=== PATIENT | male | born 1970 | race Caucasian/White ===

== ENCOUNTER 2022-05-08 09:56 | Outpatient (REF) | payer OTHER, SELFPAY ==
[2022-05-08 11:31] LABS: MANUAL DIFF FLAG NO
[2022-05-08 11:44] LABS: Basophils Absolute Auto 0.1 X10*3/uL (0.0-0.2); Basophils Percent Auto 0.6 % (0-2); Eosinophils Absolute Auto 0.1 X10*3/uL (0.0-0.4); Hematocrit 43.4 % (42.0-52.0); Hemoglobin 14.8 g/dl (14.0-18.0); Imm Gran Abs Auto 0.04 X10*3/uL (0.00-0.03); Imm Gran Pct Auto 0.5 % (0.0-0.4); Lymphocytes Absolute Auto 2.5 X10*3/uL (1.2-4.9); Lymphocytes Percent Auto 30.5 % (20-40); Mean Corpuscular HGB Conc 34.1 g/dl (31.0-36.0); Mean Corpuscular Hemoglobin 30.6 pg (27.0-33.0); Mean Corpuscular Volume 89.7 fL (80.0-98.0); Monocytes Absolute Auto 0.6 X10*3/uL (0.1-1.2); Monocytes Percent Auto 7.8 % (2-11); Neutrophils Absolute Auto 4.8 x10*3/uL (2.0-8.3); Neutrophils Percent Auto 59.6 % (45-73); Platelet Count 330 X10*3/uL (160-400); Red Blood Count 4.84 X10*6/uL (4.60-5.80); Red Cell Distribution Width 11.7 % (11.0-16.0); White Blood Count 8.1 X10*3/uL (4.8-10.8)
[2022-05-08 12:37] LABS: Prostate Specific Antigen 1.31 ng/mL (<0.05-4.0); Thyroid Stimulating Hormone 0.92 uIU/mL (0.32-4.0); Vitamin D 25-OH Total 35.9 ng/mL (>30)
[2022-05-08 12:56] LABS: Alanine Aminotransferase 19 U/L (0-40); Alkaline Phosphatase 86 U/L (39-117); Anion Gap 16 (12-20); Aspartate Amino Transferase 19 U/L (5-37); Bilirubin Total 0.5 mg/dL (0.0-1.0); Blood Urea Nitrogen 16 mg/dL (9-16); Calcium 8.9 mg/dL (8.4-10.2); Carbon Dioxide 25 mmol/L (22-29); Chloride 103 mmol/L (96-108); Cholesterol 198 mg/dL; Estimated Glomerular Filt Rate > 60; Glucose Random 111 mg/dL (60-115); HDL Cholesterol 36 mg/dL; LDL Cholesterol Calculated 137 mg/dl; Potassium 4.1 mmol/L (3.3-5.1); Sodium 140 mmol/L (135-145); Triglycerides 127 mg/dL
== END 2022-05-08 09:57 | disposition home or self-care (01) ==
LOC: HO.MANLDS 09:56
PROVIDERS: Internal Medicine; Visit Provider Dermatology Procedural Dermatology
DX: Z00.00 Encounter for general adult medical examination without abnormal findings (principal); Z12.5 Encounter for screening for malignant neoplasm of prostate
CPT/HCPCS: 36415; 80053; 80061; 82306; 84153; 84443; 85025

== ENCOUNTER 2023-06-08 09:57 | Outpatient (REF) | payer OTHER, SELFPAY ==
[2023-06-08 13:12] LABS: MANUAL DIFF FLAG NO
[2023-06-08 13:33] LABS: Basophils Percent Auto 0.5 % (0-2); Eosinophils Absolute Auto 0.1 X10*3/uL (0.0-0.4); Eosinophils Percent Auto 0.8 % (0-4); Hematocrit 46.8 % (42.0-52.0); Hemoglobin 15.8 g/dl (14.0-18.0); Imm Gran Abs Auto 0.03 X10*3/uL (0.00-0.03); Imm Gran Pct Auto 0.4 % (0.0-0.4); Lymphocytes Absolute Auto 2.2 X10*3/uL (1.2-4.9); Lymphocytes Percent Auto 29.7 % (20-40); Mean Corpuscular HGB Conc 33.8 g/dl (31.0-36.0); Mean Corpuscular Hemoglobin 30.7 pg (27.0-33.0); Mean Corpuscular Volume 90.9 fL (80.0-98.0); Mean Platelet Volume 10.3 fL (9.4-12.4); Monocytes Absolute Auto 0.5 X10*3/uL (0.1-1.2); Monocytes Percent Auto 7.3 % (2-11); Neutrophils Absolute Auto 4.5 x10*3/uL (2.0-8.3); Neutrophils Percent Auto 61.3 % (45-73); Platelet Count 266 X10*3/uL (160-400); Red Blood Count 5.15 X10*6/uL (4.60-5.80); Red Cell Distribution Width 11.9 % (11.0-16.0); White Blood Count 7.3 X10*3/uL (4.8-10.8)
[2023-06-08 14:12] LABS: Alanine Aminotransferase 20 U/L (0-40); Albumin Level 4.2 g/dL (3.5-5.0); Alkaline Phosphatase 83 U/L (39-117); Anion Gap 17 (12-20); Aspartate Amino Transferase 17 U/L (5-37); Bilirubin Total 0.9 mg/dL (0.0-1.0); Blood Urea Nitrogen 14 mg/dL (9-16); Calcium 9.8 mg/dL (8.4-10.2); Carbon Dioxide 24 mmol/L (22-29); Chloride 103 mmol/L (96-108); Cholesterol 251 mg/dL; Estimated Glomerular Filt Rate > 60; Glucose Random 111 mg/dL (60-115); HDL Cholesterol 42 mg/dL; LDL Cholesterol Calculated 181 mg/dl; Potassium 4.1 mmol/L (3.3-5.1); Prostate Specific Antigen 2.27 ng/mL (<0.05-4.0); Sodium 140 mmol/L (135-145); Total Protein 7.4 g/dL (6.5-8.0); Triglycerides 141 mg/dL
== END 2023-06-08 09:58 | disposition home or self-care (01) ==
LOC: HO.MANLDS 09:57
PROVIDERS: Visit Provider Internal Medicine
DX: Z00.00 Encounter for general adult medical examination without abnormal findings (principal); Z12.5 Encounter for screening for malignant neoplasm of prostate; Z20.2 Contact with and (suspected) exposure to infections with a predominantly sexual mode of transmission; E78.00 Pure hypercholesterolemia, unspecified
CPT/HCPCS: 36415; 80053; 80061; 84153; 85025

== ENCOUNTER 2025-01-23 11:30 | Outpatient (REF) | payer OTHER, SELFPAY ==
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
--- OUTSIDE RECORDS SUMMARY | 2025-01-23 13:18 | XMS_ITS ---
Author Name [facility] Organization Unknown Problems Problem Status Onset Date Problem Type Date of Resoluti on Source Medial epicondylitis of left elbow joint (disorder) active 2024-07-01 ProblemAct [facility] Carpal tunnel syndrome of left wrist (disorder) active 2024-07-01 ProblemAct [facility] Encounters Encounter Type Encounter Reason Primary Diagnosis Location Date Ambulatory Medial epicondylitis , left elbow Medial epicondylitis, left elbow [facility] 07/17/2024 Ambulatory [facility] 4 Care Team Organization Name Specialty Phone Email Start Date End Da kandi [facility] 10/15/2024
[2025-01-23 13:45] LABS: MANUAL DIFF FLAG NO
[2025-01-23 14:04] LABS: Basophils Percent Auto 0.4 % (0-2); Eosinophils Absolute Auto 0.1 X10*3/uL (0.0-0.4); Eosinophils Percent Auto 1.1 % (0-4); Hematocrit 45.4 % (42.0-52.0); Hemoglobin 16.2 g/dl (14.0-18.0); Imm Gran Abs Auto 0.02 X10*3/uL (0.00-0.03); Imm Gran Pct Auto 0.3 % (0.0-0.4); Lymphocytes Absolute Auto 2.2 X10*3/uL (1.2-4.9); Lymphocytes Percent Auto 30.9 % (20-40); Mean Corpuscular HGB Conc 35.7 g/dl (31.0-36.0); Mean Platelet Volume 10.3 fL (9.4-12.4); Monocytes Absolute Auto 0.5 X10*3/uL (0.1-1.2); Monocytes Percent Auto 6.6 % (2-11); Neutrophils Absolute Auto 4.3 x10*3/uL (2.0-8.3); Neutrophils Percent Auto 60.7 % (45-73); Platelet Count 253 X10*3/uL (160-400); Red Blood Count 5.22 X10*6/uL (4.60-5.80); Red Cell Distribution Width 11.8 % (11.0-16.0); White Blood Count 7.1 X10*3/uL (4.8-10.8)
[2025-01-23 14:14] LABS: Alanine Aminotransferase 38 U/L (0-40); Alkaline Phosphatase 89 U/L (39-117); Anion Gap 12 (12-20); Aspartate Amino Transferase 29 U/L (5-37); Bilirubin Total 0.7 mg/dL (0.0-1.0); Blood Urea Nitrogen 19 mg/dL (9-16); Calcium 8.9 mg/dL (8.4-10.2); Carbon Dioxide 26 mmol/L (22-29); Chloride 105 mmol/L (96-108); Cholesterol 213 mg/dL (<200); Estimated Glomerular Filt Rate > 60; Glucose Random 156 mg/dL (60-115); HDL Cholesterol 40 mg/dL (>40); LDL Cholesterol Calculated 135 mg/dL (<100); Sodium 139 mmol/L (135-145); Total Protein 7.5 g/dL (6.5-8.0); Triglycerides 194 mg/dL (<150)
[2025-01-23 14:25] LABS: Prostate Specific Antigen 1.51 ng/mL (<0.05-4.0)
== END 2025-01-23 11:31 | disposition home or self-care (01) ==
LOC: HO.MANLDS 11:30
PROVIDERS: Visit Provider Internal Medicine
DX: Z00.00 Encounter for general adult medical examination without abnormal findings (principal); Z12.5 Encounter for screening for malignant neoplasm of prostate
CPT/HCPCS: 36415; 80053; 80061; 84153; 85025

== ENCOUNTER 2025-04-13 10:49 | Outpatient (REF) | payer OTHER, SELFPAY ==
--- NOTE | ~2025-04-13 | XR_ITS ---
EXAMINATION: XR SHOULDER 2 OR MORE VIEWS LEFT HISTORY: M25.512 - Pain in left shoulder COMPARISON: There are no prior studies available for comparison. FINDINGS: Two views of the left shoulder are submitted. Osseous mineralization is normal. There is no fracture or dislocation. The acromioclavicular joint spaces are preserved. The soft tissues are unremarkable. XR/XR shoulder LT min 2V IMPRESSION: Unremarkable examination of the left shoulder. Electronically signed by: Jem Morrison MD 04/13/2025 01:13 PM EDT
== END 2025-04-13 10:50 | disposition home or self-care (01) ==
LOC: HO.HOSX 10:49
PROVIDERS: Visit Provider Orthopaedic Surgery
DX: M25.312 Other instability, left shoulder (principal)
CPT/HCPCS: 73030

== ENCOUNTER 2025-04-13 11:16 | Outpatient (AMB) | payer OTHER, SELFPAY ==
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
[2025-04-13 11:30] VITALS: BMI 28.7
== END 2025-04-13 11:55 | disposition home or self-care (01) ==
LOC: HO.HOS 11:17
PROVIDERS: Visit Provider Orthopaedic Surgery
DX: M25.312 Other instability, left shoulder (principal)
CPT/HCPCS: 99203

== ENCOUNTER → 2025-04-13 11:24 | Outpatient (BNV) | payer OTHER, SELFPAY | PROVIDERS: Visit Provider Radiology Diagnostic Radiology | DX: M25.512 Pain in left shoulder (principal) | CPT/HCPCS: 73030 ==

== ENCOUNTER 2025-04-27 15:12 | Outpatient (REF) | payer OTHER, MEDICARE, SELFPAY ==
--- NOTE | ~2025-04-27 | MR_ITS ---
EXAMINATION: MR SHOULDER WITHOUT CONTRAST, LEFT TECHNIQUE: Multiplanar multisequence imaging through an upper extremity joint without contrast. INDICATION: Left shoulder instability PRIOR: X-rays April 13, 2025 FINDINGS: Rotator Cuff: There is a deep bursal sided tear of supraspinatus tendon at the footprint with 1 cm gap. Bursal surface of anterior infraspinatus tendon appears frayed near the footprint. Infraspinatus tendon is intact. Labrum: Posterior labrum is small and frayed. Long biceps tendon: The long biceps tendon is intact and not displaced from the groove. Acromioclavicular joint: Mild degenerative changes are evident in the AC joint. There is moderate marrow signal. There is mildly increased fluid in the subacromial subdeltoid bursa. Acromial morphology is flat, type I. There is a very small subacromial spur. Axillary pouch: The axillary pouch is intact. Axillary pouch appears mildly thickened and demonstrates mildly increased signal on all imaging sequences. Articular cartilage: There are no articular cartilage defects. Bones/Marrow: There are no marrow replacing lesions. Soft tissues: There is no muscle atrophy, edema, or fatty streaking. MR/MR shoulder LT wo con IMPRESSION: There is a deep bursal sided tear of supraspinatus tendon and bursal sided fraying of anterior infraspinatus tendon. There is a very small subacromial spur. Subacromial subdeltoid bursal effusion. Possible adhesive capsulitis: Axillary pouch is thickened with increased intrinsic signal which can be present in asymptomatic individuals but is also present in those with adhesive capsulitis. Posterior labrum is small and frayed. Electronically signed by: Fabrizio Dorado MD 04/27/2025 04:12 PM EDT
--- OUTSIDE RECORDS SUMMARY | 2025-04-27 17:09 | XMS_ITS | Data Portability ---
Author Organization [facility], Telehealth Patient Home Address [address] [place] [address] Assessment No assessment recorded. Plan of Treatment Reminders Order Date Submit Date Provider Last Modified By Organization Details Last Modified Time Details Appointments ANNUAL EXAM 2024 11:30A M DR BAEZA Not available Not available Not available Lab CMP, serum or plasma 2023 024 [facility], [address] [place] [address], [id number], 10/15/2024 14:04:03 CBC w/ auto diff 2023 024 [facility], [address] [place] [address], [id number], 10/15/2024 14:04:03 PSA, serum or plasma 2023 024 [facility], [address] [place] [address], [id number], 10/15/2024 14:04:03 lipid panel, blood 2023 024 [facility], [address] [place] [address], [id number], 10/15/2024 14:04:03 CMP, serum or plasma 2022 023 [facility], [address] [place] [address], [id number], 06/11/2023 11:11:39 lipid panel, blood 2022 023 [facility], [address] [place] [address], [id number], 06/11/2023 11:11:39 PSA, serum or plasma 2022 023 [facility], [address] [place] [address], [id number], 06/11/2023 11:11:39 CBC 2022 023 [facility], [address] [place] [address], [address], 06/11/2023 11:11:39 CMP, serum or plasma 2021 022 [facility], [address] [place] [address], [id number], 05/09/2022 12:13:22 lipid panel, blood 2021 022 [facility], [address] [place] [address], [address], 05/05/2022 15:05:20 CBC w/ auto diff 2021 022 [facility], [address] [place] [address], [id number], 05/05/2022 15:05:20 PSA, serum or plasma 2021 022 [facility], [address] [place] [address], [address], 05/05/2022 15:05:20 vitamin D, 25-hydrox y, total, serum 2021 022 [facility], [address] [place] [address], [address], 05/05/2022 15:05:20 TSH, serum or plasma 2021 022 [facility], [address] [facility], [place], [address], 05/05/2022 15:05:20 Referral orthopedi c surgeon referral 2021 022 [email or web address] 10 Teo Theodore MD, [address] [facility], [place], [address], 05/12/2022 10:34:[address] referral 2018 [facility] Kamran Marcum MD, [address] , [place], [address], 08/22/2019 09:11:25 gastroent erologist referral 2018 [facility], [address] [place], [address], 08/22/2019 09:23:57 Procedures trans-tho racic echocardi ogram (TTE) (PROC) 2018 019 [facility], [address] [place], [address], 08/26/2019 10:31:50 holter monitor placement (PROC) 2018 019 [facility], [address] [place], [address], 08/26/2019 10:31:50 Surgeries None recorded. Imaging MRI, shoulder, w/o contrast - pt has a plate and screws in the right arm from orthopedi cs 2024 025 [facility] (Imaging), [address] [place], [address], 04/03/2025 16:26:05 CT, heart, w/o contrast, w/ coronary calcium score 2022 023 [facility], [address] [place], [address], 06/15/2023 09:21:33 US, carotid artery 2018 019 [facility], [address] [place], [address], 09/01/2019 08:06:58 Medication Orders None recorded. Patient TargetsNo targets recorded. Patient Instructions Encounter Date Encounter Id Patient Instructions Last Modified By Organization Details Last Modified Time 08/18/2019 [id number] nausea and vomiting: care instructions Not available 08/18/2019 14:36:53 fainting: care instructions Not available 08/18/2019 14:36:53 lightheadedness or faintness: care instructions Not available 08/18/2019 14:36:53 05/05/2022 [id number] hearing loss: ca re instructions [email or web address] Not available 05/05/2022 15:04:01 hearing evaluation* [email or web address] Not aman ilable 05/12/2022 09:26:26 Reason for Referral Neurologist Referral for Syn cope Referring Physician: Lili Braswell, Internal Medicine, Encounter Date: 08/18/2019 Daycare Provider Referral for Screening for malignant neoplasm of colon Referring Physician: Lili Bras[facility], Encounter Date: 08/18/2019 Orthopedic Surgeon Referral for Lateral epicondylitis of left humerus Referring Physician: Justice Baeza, Internal Medicine, Encounter Date: 05/05/2022 Results Created Date Observation Date Name Description Value Unit Range Abnormal Flag Note LastModifiedBy Organization Detail LastModifiedTime 01/09/20 20 01/07/2020 elect roenc ephal ogram (EEG) ; inclu ding recor ding awake and drows y (PROC ) No observ ation record ed. [email or web address] Not Available 2021 14:51:08 06/28/20 23 06/28/2023 CT, heart , w/o contr ast, w/ coron elise calci um score No observ ation record ed. [email or web address] [facility] [address] [place], [address], 06/29/2023 09:20:40 Result Notes None recorded. Problems Name Problem SNOMED Code Status Onset Date Resolution Date Notes Provider Name and Address Organization Details Recorded Time Hearing loss 72019550 Active 2021 Justice Baeza DO [address] [place] [address], [address], [facility] 2 15:02:29 Hearing loss 90473459 Active 2021 Justice Baeza DO [address] [place] [address], [address], [facility] 2 15:02:33 Lateral epicondyl itis of left humerus 345815817342 100 Active 2021 Justice Baeza DO [address] [place] [address], [address], [facility] 2 15:04:28 Contact dermatiti s 71868055 Active 2022 Justice Baeza DO [address] [place] [address], [address], [facility] 3 15:35:40 Biceps tendiniti s 628796111 Active 2024 SHIVA LOREDO [address] [place] [address], [address], [facility] 5 12:27:19 Pain of left shoulder region Active 2024 SHIVA LOREDO [address] [place] [address], [address], [facility] 5 12:28:04 Problem Notes None recorded. Procedures Surgical History Date Name Laterality Status Provider Name and Address Organization Details Recorded Time 11/12/18 97 amputation of right upper extremity completed February SHWETA Braswell [address] [place] [address], [address], [facility] 08/18/2019 14:30:39 Imaging Results None recorded. Procedure Notes None recorded. Medical Equipment None [...] Not Available Vitals Date Recorded Body height Provider Name an d Address Organization Details Last Updated DateTime 03/25/2025 177.8 cm Ofelia Danyel [facility] 03/25/2025 12:01:20 Date Recorded Body height Body mass index (BMI) Body weight Oxygen saturation Oxygen saturation in Arterial blood by Pulse oximetry Heart rate Systolic blood pressure Diastolic blood pressure Provider Name and Address Organization Details Last Updated DateTime 2 179.07 cm 27.7 kg/m2 90646.7 5 g 98 % 98 % 78 /min 152 mm[Hg] 82 mm[Hg] Suzanne Mtz [facility] 2 14:47:06 Date Recorded Body height Body mass index (BMI) Body weight Heart rate Oxygen saturation Oxygen saturation in Arterial blood by Pulse oximetry Systolic blood pressure Diastolic blood pressure Provider Name and Address Organization Details Last Updated DateTime 3 177.8 cm 28.1 kg/m2 93086.7 5 g 67 /min 96 % 96 % 142 mm[Hg] 86 mm[Hg] Justice Baeza, DO [address] [place], [address], [facility] 3 09:31:34 Date Recorded Body height Body mass index (BMI) Body weight Heart rate Oxygen saturation Oxygen saturation in Arterial blood by Pulse oximetry Systolic blood pressure Diastolic blood pressure Provider Name and Address Organization Details Last Updated DateTime 9 179.07 cm 27 kg/m2 12095.7 1 g 79 /min 98 % 98 % 120 mm[Hg] 82 mm[Hg] Krystyna Diallo [facility] 9 14:17:39 Date Recorded Body height Body mass index (BMI) Body weight Heart rate Oxygen saturation Oxygen saturation in Arterial blood by Pulse oximetry Systolic blood pressure Diastolic blood pressure Provider Name and Address Organization Details Last Updated DateTime 4 177.8 cm 33.3 kg/m2 538228. 43 g 78 /min 96 % 96 % 136 mm[Hg] 80 mm[Hg] [facility] 4 13:44:48 Social History Question Answer Notes LastModified by [employer] Details LastModified Time Tobacco Smoking Status Former [facility]oker Not Available [facility] 03:36:23 What Was The Date Of Your Most Recent Tobacco Screening? 03/25/2025 [email or web address] Information not available 03/25/2025 How Much Tobacco Do You Smoke? 1 PPW [id number] Information not available 09/14/2020 How Many Years Have You Smoked Tobacco? 1 [id number] Information not available 09/14/2020 Sex: Unknown Functional Status Question Answer Note LastModified by [employer] Details LastModified Time Do you or have you ever used smokeless tobacco? Never used smokeless tobacco [id number] Information not available 09/14/2020 Do you or have you ever used e-cigarettes or vape? Never used electronic cigarettes [id number] Information not available 09/14/2020 Mental Status None recorded. Family History Relationship [...] SNOMED-CT Code Diagnosis ICD10 Code Diagnosis Note [id number] Justice Dedrick Baeza [facility] [address] [address] 10/11/2018 14:54:54 10/11/2018 16:56:55 Right flank pain 958415616 R10.9 to go to [facility] from [facility] for labs & X-ray [id number] Justice Dedrick Baeza [facility] [address] [address] 08/18/2019 14:12:27 08/18/2019 15:20:37 Syncope 725839323 R55 Nausea and vomiting 1693 1999 R11.2 resolved, none since er Screening for malignant neoplasm of colon 347100870 Z12.11 [id number] Justice Baeza [facility] [address] [address] 05/05/2022 14:36:46 05/05/2022 15:15:29 Active or passive immunization 028826426 Z23 utd Adult heal th examination 328176841 Z00.00 Hearing loss 14409598 H9 1.91 Lateral ep icondylitis of left humerus 9536782781 22908 M77.12 [id number] Justice Baeza [facility] [address] [address] 06/08/2023 09:23:52 06/08/2023 09:54:46 Active or passive immunization 285508643 Z23 utd Adult heal th examination 349589486 Z00.00 [id number] Justice Baeza [facility] [address] [address] 10/15/2024 13:39:50 10/15/2024 14:13:29 Active or passive immunization 709458711 Z23 utd Adult heal th examination 460635139 Z00.00 stable and doing ok Depression screening 171 502708 Z13.31 neg [id number] DO Brinda [facility] [address] [facility],[place] [address] 03/25/2025 11:48:21 03/25/2025 13:25:29 Biceps tendinitis 393423135 M67.922 will set up with MRI given physical exampt would like [place] Pain of le ft shoulder region 5963713490 M25.512 will fu after MRI, trying to move his ortho appt up based on imaging Depression screening 171 997842 Z13.31 negative Health Concerns Section Related Observation LastModified by Organization Detai ls LastModified Time None Recorded Concern Status LastModified by Organization Details LastModified Time None Recorded Advance Directives Directive None Recorded Payers Insurance Date Sequence Insurance Name Policy Number Policy Nogueira Covered Member ID Nogueira Member ID Guarantor Name 10/08/2024 1 [place]ICARE [place]: [employer] Kip Howard Laura [id number] Kip Sanchez 03/25/[address] [facility] [id number] Kip Laura [id number] Kip Navarroperla Notes Date Note Type Note Provider Name a nd Address Organization Details Recorded Time 9 text/html felt lightheaded and then passed [...] ness, rashes, or nail changes. SHWETA Johnson [address] [facility], [place], [address], [facility] 08/18/2019 14:43:09 2 text/html [...] hearing Vision:no vision problems Justice Baeza DO [address] [place] [address], [address], [facility] 05/05/2022 15:08:55 3 text/html Annual WellnessReported bypatient.Diet [...] has lost 10 lbs Justice Baeza DO [address] [place] [address], [address], [facility] 06/08/2023 09:51:56 5 text/html c/o L shoulder pain The patient reports left shoulder painThe pain started about a month ago or so, 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 is pretty activeThe pain is characterized byOn a scale of 1 to 10 the patient reports a 9 at worse and 5 at bestThe patient is right hand dominant, ambidextrous, cant's use his right hand due to injury at work, severed tendon, sig impairment of the R hand pulling, lifting, overhead motion, circumduction, int and ext rotationmostly with they biceps, supraspinatus, anterior arm seeing has an appt in Ortho in May which given the loss of ROM and ability to use his left shoulder is too far away, hitesh since he is relying on his left side given deformity of the right has hx of elbow surgery and injection which didn't take wellthe patient wore a sling for a bit after, which could have provoked a frozen shoulder the patient reports that he may have over extended the shoulder at some point Endorses weakness, radiation, reduced ROM, painThe pain is worsened by ext and int rotation, flexion, extmostly along the bicep and deltoid L arm The pain is alleviated by not moving his armNSAID, rest, PT has not been effective The patient denies specific trauma or injuryThe patient reports repetitive activities, lifting at work and golfing ROM compared to unaffected shoulder is reducedhe does have expected weakness on the right side due to the previous injury Pertinent comorbidities include hx of damage to that arm and dependency of his left shoulder SHIVA LOREDO [address] [place] [address], [place], [address], [facility] 03/25/2025 12:37:13
== END 2025-04-27 15:13 | disposition home or self-care (01) ==
LOC: HO.MRI 15:12
PROVIDERS: Visit Provider Orthopaedic Surgery
DX: M25.312 Other instability, left shoulder (principal)
CPT/HCPCS: 73221

== ENCOUNTER → 2025-04-27 15:28 | Outpatient (BNV) | payer OTHER, MEDICARE, SELFPAY | PROVIDERS: Visit Provider Radiology Diagnostic Radiology | DX: M75.102 Unspecified rotator cuff tear or rupture of left shoulder, not specified as traumatic (principal) | CPT/HCPCS: 73221 ==

== ENCOUNTER 2025-05-13 12:51 | Outpatient (AMB) | payer OTHER, MEDICARE, SELFPAY ==
--- NOTE | 2025-05-13 12:58 | A.OFFVIS_ITS ---
Vital Signs 05/13/25 12:59 Height 5 ft 10 in Weight 200 lb BMI 28.7 Intake Visit Reasons: OV-Lt shoulder MRI review Intake Note: Kip is a 54 year old left hand dominant male who presents with complaints of progressively worsening left shoulder pain and weakness. The patient states that he was right-hand dominant as a youngster. 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 The lower portion of his right arm was surgically reattached but his function has been diminished. Thus, the patient has learned to become left-hand dominant. The patient describes his left shoulder pain as sharp in nature. He reports weakness when lifting his hand above shoulder height. The patient states that several months ago he injured his left shoulder while playing golf. He had acute onset of pain. He has failed the last 6 weeks of conservative treatment which has included Tylenol, anti-inflammatory medicines, physical therapy and a home exercise program. The patient did undergo left elbow surgery by Dr. Theodore approximately 2 years ago. He reports intermittent discomfort in his left elbow as well. Allergies No Known Allergies Allergy (Verified 05/13/25 13:00) Medication List - Last Reconciled 05/14/25 by Paresh Corley MD No Known Home Meds Physical Exam Vital Signs: BMI result Body Mass Index 28.7 Const Other: Well-nourished well-developed very friendly male awake alert and oriented x3 in no acute distress Extrem Other: Left shoulder examination shows slightly decreased range of motion when compared to his right shoulder, 4/5 strength with supraspinatus testing, positive impingement signs, tenderness over his acromioclavicular joint, no instability Results Reviewed Results Reviewed: MRI of the patient's left shoulder show severe acromioclavicular joint narrowing , a type 3 acromion, a full-thickness supraspinatus tendon tear Assessment & Plan Assessment & Plan (1) Rotator cuff insufficiency of left shoulder: Code(s): M25.312 - Other instability, left shoulder Category: Medical Plan Mr. Sanchez presents with progressively worsening left shoulder pain and weakness due to impingement syndrome, acromioclavicular joint arthritis and a full- thickness rotator cuff tear. I had a lengthy discussion with the patient regarding the treatment options. At this point he has failed continued non operative treatments. The risks and benefits of left shoulder surgery were discussed at length with the patient. The patient wishes to proceed with surgery. Surgery will involve left shoulder arthroscopic distal clavicle excision, left shoulder arthroscopic acromioplasty and left shoulder mini open rotator cuff repair. The patient will be scheduled for next available date. He will follow-up as instructed. I spent 22 minutes in reviewing the patient's records and imaging studies, seeing the patient and documenting in the medical record. Coding Level of Care Code Est Pt Level 3 (47073) Complex EM visit Add On G2211 Diagnoses Rotator cuff insufficiency of left shoulder M25.312
[2025-05-13 12:59] VITALS: BMI 28.7
--- OUTSIDE RECORDS SUMMARY | 2025-05-13 13:20 | XMS_ITS | Continuity of Care Document ---
Author Name [facility] Organization [facility] Care Team Providers Care Bag Printer Name Role Phone [facility] Unavailable Unavailable Allergies, Adverse Reactions, Alerts Combined list of allergies from Department of Defense and Veterans Affairs facilities. It does not include entries that were removed or entered in error. Substance Category Reaction Severity Reaction type Status Date Reported Comments Source No Known Allergies Drug allergy (disorder) active 04/02/2017 Teo NAPIER, LEX Smith Social History Combined list of available smoking, tobacco, and other social history from Department of Defense and Veterans Affairs facilities. Social History Type Response Date Comment Sour e This section is an empty social history section. [facility]
--- OUTSIDE RECORDS SUMMARY | 2025-05-13 13:21 | XMS_ITS | Data Portability ---
Author Organization [facility] Telehealth Patient Home Address [address] [place] [address] Assessment No assessment recorded. Plan of Treatment Reminders Order Date Submit Date Provider Last Modified By Organization Details Last Modified Time Details Appointments ANNUAL EXAM 2024 11:30A M DR BAEZA Not available Not available Not available Lab CMP, serum or plasma 2023 024 [facility], [address] [place] [address], [id number], 10/15/2024 14:04:03 CBC w/ auto diff 2023 024 [facility], [address] [place] [address], [id number], 10/15/2024 14:04:03 PSA, serum or plasma 2023 024 [facility], [address] [place] [address], [id number], 10/15/2024 14:04:03 lipid panel, blood 2023 024 [facility], [address] [place] [address], [id number], 10/15/2024 14:04:03 CMP, serum or plasma 2022 023 [facility], [address] [place] [address], [id number], 06/11/2023 11:11:39 lipid panel, blood 2022 023 [facility], [address] [place] [address], [id number], 06/11/2023 11:11:39 PSA, serum or plasma 2022 023 [facility], [address] [place] [address], [id number], 06/11/2023 11:11:39 CBC 2022 023 [facility], [address] [place] [address], [address], 06/11/2023 11:11:39 CMP, serum or plasma 2021 022 [facility], [address] [place] [address], [id number], 05/09/2022 12:13:22 lipid panel, blood 2021 022 [facility], [address] [place] [address], [address], 05/05/2022 15:05:20 CBC w/ auto diff 2021 022 [facility], [address] [place] [address], [id number], 05/05/2022 15:05:20 PSA, serum or plasma 2021 022 [facility], [address] [place] [address], [address], 05/05/2022 15:05:20 vitamin D, 25-hydrox y, total, serum 2021 022 [facility], [address] [place] [address], [address], 05/05/2022 15:05:20 TSH, serum or plasma 2021 022 [facility], [address] [facility], [place], [address], 05/05/2022 15:05:20 Referral orthopedi c surgeon referral 2021 022 [email or web address] 10 Teo Theodore MD, [address] [facility], [place], [address], 05/12/2022 10:34:[address] referral 2018 [facility] Kamran Marcum MD, [address] [place], [address], 08/22/2019 09:11:25 gastroent erologist referral 2018 019 [facility], [address] [place], [address], 08/22/2019 09:23:57 Procedures trans-tho racic echocardi ogram (TTE) (PROC) 2018 019 [facility], [address] [place], [address], 08/26/2019 10:31:50 holter monitor placement (PROC) 2018 019 [facility], [address] [place], [address], 08/26/2019 10:31:50 Surgeries None recorded. Imaging MRI, shoulder, w/o contrast - pt has a plate and screws in the right arm from orthopedi cs 2024 025 [facility] (Imaging), [address] [place], [address], 04/03/2025 16:26:05 CT, heart, w/o contrast, w/ coronary calcium score 2022 023 [facility], [address] [place], [address], 06/15/2023 09:21:33 US, carotid artery 2018 019 [facility], [address] [place], [address], 09/01/2019 08:06:58 Medication Orders None recorded. Patient TargetsNo targets recorded. Patient Instructions Encounter Date Encounter Id Patient Instructions Last Modified By Organization Details Last Modified Time 08/18/2019 [id number] nausea and vomiting: care instructions Not available 08/18/2019 14:36:53 fainting: care instructions Not available 08/18/2019 14:36:53 lightheadedness or faintness: care instructions Not available 08/18/2019 14:36:53 05/05/2022 [id number] hearing loss: ca re instructions [email or web address] Not available 05/05/2022 15:04:01 hearing evaluation* [email or web address] Not aman ilable 05/12/2022 09:26:26 Reason for Referral Neurologist Referral for Syn cope Referring Physician: Lili Braswell, Internal Medicine, Encounter Date: 08/18/2019 [facility] Referral for Screening for malignant neoplasm of [...] um score No observ ation record ed. [email or web address] [facility] [address] [place], [address], 06/29/2023 09:20:40 Result Notes None recorded. Problems Name Problem SNOMED Code Status Onset Date Resolution Date Notes Provider Name and Address Organization Details Recorded Time Hearing loss 50387275 Active 2021 Justice Baeza DO [address] [place] [address], [phone], [facility] 2 15:02:29 Hearing loss 70675230 Active 2021 Justice Baeza DO [address] [place] [address], [address], [facility] 2 15:02:33 Lateral epicondyl itis of left humerus 975200550103 100 Active 2021 Justice Baeza DO [address] [place] [address], [address], [facility] 2 15:04:28 Contact dermatiti s 92655004 Active 2022 Justice Baeza DO [address] [place] [address], [address], [facility] 3 15:35:40 Biceps tendiniti s 738412324 Active 2024 SHIVA LOREDO [address] [place] [address], [address], [facility] [place] [facility] 5 12:27:19 Pain of left shoulder region Active 2024 SHIVA LOREDO [address] [place] [address], [address], [facility] 5 12:28:04 Problem Notes None recorded. Procedures Surgical History Date Name Laterality Status Provider Name and Address Organization Details Recorded Time 11/12/18 97 amputation of right upper extremity completed February SHWETA Braswell [address] [place] [address], [phone], [facility] 08/18/2019 14:30:39 Imaging Results None [...] Details Last Updated DateTime 03/25/2025 177.8 cm Ofeliadelbert Montaño [facility] 03/25/2025 12:01:20 Date Recorded Body height Body mass index (BMI) Body weight Oxygen saturation Oxygen saturation in Arterial blood by Pulse oximetry Heart rate Systolic blood pressure Diastolic blood pressure Provider Name and Address Organization Details Last Updated DateTime 2 179.07 cm 27.7 kg/m2 95764.7 5 g 98 % 98 % 78 /min 152 mm[Hg] 82 mm[Hg] Suzanne Mtz [facility] 2 14:47:06 Date Recorded Body height Body mass index (BMI) Body weight Heart rate Oxygen saturation Oxygen saturation in Arterial blood by Pulse oximetry Systolic blood pressure Diastolic blood pressure Provider Name and Address Organization Details Last Updated DateTime 3 177.8 cm 28.1 kg/m2 58279.7 5 g 67 /min 96 % 96 % 142 mm[Hg] 86 mm[Hg] Justice Baeza, DO [address] [place], [address], [facility] 3 09:31:34 Date Recorded Body height Body mass index (BMI) Body weight Heart rate Oxygen saturation Oxygen saturation in Arterial blood by Pulse oximetry Systolic blood pressure Diastolic blood pressure Provider Name and Address Organization Details Last Updated DateTime 9 179.07 cm 27 kg/m2 17819.7 1 g 79 /min 98 % 98 % 120 mm[Hg] 82 mm[Hg] Krystyna Diallo [facility] 9 14:17:39 Date Recorded Body height Body mass index (BMI) Body weight Heart rate Oxygen saturation Oxygen saturation in Arterial blood by Pulse oximetry Systolic blood pressure Diastolic blood pressure Provider Name and Address Organization Details Last Updated DateTime 4 177.8 cm 33.3 kg/m2 307350. 43 g 78 /min 96 % 96 % 136 mm[Hg] 80 mm[Hg] [facility] 4 13:44:48 Social History Question Answer Notes LastModified by Gl[employer] Details LastModified Time Tobacco Smoking Status Former Smoker Not Available [facility] 09/14/2020 03:36:23 What Was The Date Of Your Most Recent Tobacco Screening? 03/25/2025 [email or web address] Information not available 03/25/2025 How Much Tobacco Do You Smoke? 1 PPW [id number] Information not available 09/14/2020 How Many Years Have You Smoked Tobacco? 1 [id number] Information not available 09/14/2020 Sex: Unknown Functional Status Question Answer Note LastModified by Gl[employer] Details LastModified Time Do you or have you ever used smokeless tobacco? Never used smokeless tobacco [id number] Information not available 09/14/2020 Do you or have you ever used e-cigarettes or vape? Never used electronic cigarettes [id number] Information not available 09/14/2020 Mental Status None recorded. Family History Relationship Description Onset Age of this Age Resolved Age Notes LastModified by Organization Details LastModified Time Father Squamous cell carcinoma of anal margin [email or web address] Not available 05/2019 14:40:14 Medical History Condition Response Coronary Artery Disease N Other N Gout N Blood Diseases N Kidney Stones N Blood Transfusion N Breast Cancer N COPD N Depression N Lung Disease N Defects or Inherited Disease N Anxiety Disorder N Muscle, Joint, or Bone Problems N Obesity N Vision or Eye Problems N Arthritis N Polyps N Infertility N Mental Disorder N Cancer N Varicosities N Stroke N Endometriosis N Bladder or Kidney Problems N High Cholesterol N Liver Disease N Fibromyalgia N Headaches N Kidney Disease N Allergies/Hayfever N Heart Problems N Hospitalizations N Thyroid Problems N GI Problems N Skin Problems N Eating Disorder N Anemia N MRSA exposure N Constipation N Mental Illness N Ovarian Cancer N Diabetes N Seizures/Epilepsy N Tuberculosis N Congestive Heart Failure (CHF) N Eczema N Diverticulitis N Abuse/Domestic Violence N Asthma N Reflux/GERD N Hepatitis N Heart Disease N Pulmonary Embolism N Hypertension N Osteoporosis N Chicken Pox N Autism Spectrum Disorder (ASD) N Past Encounters Encounter ID Performer Location Encounter Start Date Encounter Closed Date Diagnosis/Indication Diagnosis SNOMED-CT Code Diagnosis ICD10 Code Diagnosis Note [id number] Justice Enamoradostephanie [facility] [address] [address] 10/11/2018 14:54:54 10/11/2018 16:56:55 Right flank pain 898982721 R10.9 to go to [facility] from [facility] for labs & X-ray [id number] Justice Enamoradostephanie [facility] [address] [address] 08/18/2019 14:12:27 08/18/2019 15:20:37 Syncope 577012445 R55 Nausea and vomiting 1693 2000 R11.2 resolved, none since er Screening for malignant neoplasm of colon 635336800 Z12.11 [id number] Justice Enamoradostephanie [facility] [address] [address] 05/05/2022 14:36:46 05/05/2022 15:15:29 Active or passive immunization 817166493 Z23 utd Adult heal th examination 779448476 Z00.00 Hearing loss 31097774 H9 1.91 Lateral ep icondylitis of left humerus 8139761226 20549 M77.12 [id number] Justice Enamoradostephanie [facility] [address] [address] 06/08/2023 09:23:52 06/08/2023 09:54:46 Active or passive immunization 126961404 Z23 utd Adult heal th examination 761249170 Z00.00 [id number] Justice Enamoradostephanie [facility] [address] [address] 10/15/2024 13:39:50 10/15/2024 14:13:29 Active or passive immunization 357252367 Z23 utd Adult heal th examination 700529338 Z00.00 stable and doing ok Depression screening 171 942391 Z13.31 neg [id number] DO Br[facility] [address] [facility],[place] [address] 03/25/2025 11:48:21 03/25/2025 13:25:29 Biceps tendinitis 851271016 M67.922 will set up with MRI given physical exampt would like [place] Pain of le ft shoulder region 5983859882 M25.512 will fu after MRI, trying to move his ortho appt up based on imaging Depression screening 171 961604 Z13.31 negative Health Concerns Section Related Observation LastModified by Organization Detai ls LastModified Time None Recorded Concern Status LastModified by Organization Details LastModified Time None Recorded Advance Directives Directive None Recorded Payers Insurance Date Sequence Insurance Name Policy Number Policy Nogueira Covered Member ID Nogueira Member ID Guarantor Name 10/08/2024 1 MEDICARE [place]: [employer] Kip Howard Laura [id number] Kip Sanchez 03/25/2025 1 [facility] [id number] Kip Laura [id number] Kip Navarroperla Notes Date Note Type Note [...] rashes, or nail changes. 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
--- OUTSIDE RECORDS SUMMARY | 2025-05-13 13:22 | XMS_ITS ---
Author Name [facility] Organization Unknown Problems Problem Status Onset Date [...] [facility] 07/17/2024 Ambulatory [facility] Care Team Organization Name Specialty Phone Email Start Date End Da te [facility] 10/15/2024
== END 2025-05-13 13:28 | disposition home or self-care (01) ==
LOC: HO.HOS 12:52
PROVIDERS: Visit Provider Orthopaedic Surgery
DX: M25.312 Other instability, left shoulder (principal)
CPT/HCPCS: 99214; G2211

== ENCOUNTER 2025-08-27 10:15 | Outpatient (AMB) | payer OTHER, MEDICARE, SELFPAY ==
[2025-08-27 10:19] VITALS: BMI 28.7
--- NOTE | 2025-08-27 10:19 | MHC.OFFVIS ---
Vital Signs 08/27/25 10:19 Height 5 ft 10 in Weight 200 lb BMI 28.7 Intake Visit Reasons: Preop LT shoulder 09/04/25 DR Wild Note: Kip is a 54 year old left hand dominant male who presents with complaints of progressively worsening left shoulder pain and weakness. The patient states that he was right-hand dominant as a youngster. 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 The lower portion of his right arm was surgically reattached but his function has been diminished. Thus, the patient has learned to become left-hand dominant. The patient describes his left shoulder pain as sharp in nature. He reports weakness when lifting his hand above shoulder height. The patient states that several months ago he injured his left shoulder while playing golf. He had acute onset of pain. He has failed the last 6 weeks of conservative treatment which has included Tylenol, anti-inflammatory medicines, physical therapy and a home exercise program. The patient did undergo left elbow surgery by Dr. Theodore approximately 2 years ago. He reports intermittent discomfort in his left elbow as well. Allergies No Known Allergies Allergy (Verified 08/27/25 10:23) Medication List - Last Reconciled 08/27/25 by Paresh Corley MD No Known Home Meds [facility] Medical History Arm injury Family history of colon cancer Surgical History Hx of elbow surgery History of surgery on upper extremity H/O colonoscopy Social History Are you a primary md do resident urgent care to a significant other at home: No Do you presently have visiting nurse or other home services: No Patient Tobacco Use Status: Former Tobacco user Tobacco use type: Cigarette Years Smoked: 2 Physical Exam Vital Signs: BMI result Body Mass Index 28.7 Const Other: Well-nourished well-developed very friendly male awake alert and oriented x3 in no acute distress Extrem Other: Left shoulder examination shows slightly decreased range of motion when compared to his right shoulder, 4/5 strength with supraspinatus testing, positive impingement signs, tenderness over his acromioclavicular joint, no instability Results Reviewed Results Reviewed: MRI of the patient's left shoulder show severe acromioclavicular joint narrowing, a type 2 acromion, a full-thickness tear of the supraspinatus tendon Assessment & Plan Assessment & Plan (1) Rotator cuff insufficiency of left shoulder: Code(s): M25.312 - Other instability, left shoulder Category: Medical Plan Mr. Sanchez presents with progressively worsening left shoulder pain and weakness due to impingement syndrome, acromioclavicular joint arthritis and a full-thickness rotator cuff tear. I had a lengthy discussion with the patient regarding the treatment options. At this point he has failed continued non operative treatments. The risks and benefits of right shoulder surgery were discussed at length with the patient. The patient wishes to proceed. Surgery will involve left shoulder arthroscopic distal clavicle excision, left shoulder arthroscopic acromioplasty and left shoulder mini open rotator cuff repair. The patient will be given a prescription for pain medicine at the time of his surgery. He will follow up as instructed. Feel free to call me at any time should questions regarding his orthopedic management arise. I spent 22 minutes in reviewing the patient's records and imaging studies, seeing the patient and documenting in the medical record. Coding Level of Care Code Est Pt Level 3 (88938) Complex EM visit Add On G2211 Diagnoses Rotator cuff insufficiency of left shoulder M25.312
--- OUTSIDE RECORDS SUMMARY | 2025-08-27 12:36 | XMS_ITS | Encounter Summary ---
Author Organization [facility] Address [address] [facility] [address] [place] [address] Phone Care Team Providers Care Cuff Slitter Name Role Phone Justice Hull DO Primary Care Provider [phone] Justice Hull DO Primary Care Provider [phone] Encounter Details Date Type Department Care Team (Latest Contact Info) Description 08/19/2019 Transcribe Orders Virtual Department [address] [place] [address] Lili Braswell PA-C [address] [place] [address] Syncope and collapse (Primary Dx) Social History [...] Primary documented in this encounter Care Teams Cuff Slitter Relationship Specialty Start Date End Date Justice Hull DO PCP - General 11/15/17 04/22/25 Justice Hull DO [address] [place] [address] [email or web address] PCP - General Internal Medicine 04/23/25 documented as of this encounter Additional Source Comments The information contained in this document represents components of the legal health record. It is not the complete legal health record.[facility]
--- OUTSIDE RECORDS SUMMARY | 2025-08-27 12:36 | XMS_ITS | Encounter Summary ---
Author Organization [facility] Address [address] [place] [address] Phone Care Team Providers Care Internet Application Developer Name Role Phone Kelseastephanie Justice Maurilio Primary Care Provider [phone] Justice Hull DO Primary Care Provider [phone] Encounter Details Date Type Department Care Team ([facility] st Contact Info) Description 11/17/2022 Procedure Pass [facility] Endoscopy Admitting Dept Virtual Department [address] [place] [address] Social History Tobacco Use Types Packs/Day Years [...] on filedocumented in this encounter Care Teams Internet Application Developer Relationship Specialty Start Date End Date Justice Hull DO PCP - General 11/15/17 04/22/25 Justice Hull DO [address] [place] [address] [email or web address] PCP - General Internal Medicine 04/23/25 documented as of this encounter Additional Source Comments The information contained in this document represents components of the legal health record. It is not the complete legal health record.[facility]
--- OUTSIDE RECORDS SUMMARY | 2025-08-27 12:37 | XMS_ITS | Encounter Summary ---
Author Organization [facility] Address [address] [place] [address] [place] [address] Phone Care Team Providers Care Jd Edwards Consultant Name Role Phone Justice Hull Primary Care Provider [phone] KelseaJustice brown Primary Care Provider [phone] Encounter Details Date Type Department Care Team (Latest Contact Info) Description 01/22/2020 Transcribe Orders Virtual Department [address] [place] [address] Almas Rosenberg MD [address] [place] [address], [address] [place] [address] [email or web address] Nonintractable headache, unspecified chronicity pattern, unspecified [...] convulsions documented in this encounter Care Teams Jd Edwards Consultant Relationship Specialty Start Date End Date BigJustice brown PCP - General 11/15/17 04/22/25 KelseaJustice brown [address] [place] [address] PCP - General Internal Medicine 04/23/25 documented as of this encounter Additional Source Comments The information contained in this document represents components of the legal health record. It is not the complete legal health record.[facility]
--- OUTSIDE RECORDS SUMMARY | 2025-08-27 12:37 | XMS_ITS | Clinical Summary ---
Author Organization [facility] Address [address] [employer] [facility] [address] [place] [address] Phone Care Team Providers Care Fan Engine Engineer Name Role Phone Martin Baeza Primary Care Provider Allergies No known active allergies Medications SUMAtriptan [...] 11/17/2032 11/17/2022, 11/07/2019 COLORECTAL CANCER SCREENING 11/17/2032 RSV VACCINE (1 - 1-dose 75+ series) 2047 HEPATITIS A VACCINES Aged Out No long [...] this topic Medical Devices Implanted Type Area Precision Lens Centerer And Edger Device Identifier Shelf Expiration Date Model / Serial / Lot R Elbow Pins And Plate Procedures Procedure Name Priority Date/Time Associated Diagnosis Comments ENDOSCOPY, COLON 11/17/2022 11:0 0 AM EST from Last 3 Months or Most Recently Relevant to Health Maintenance Results * ENDOSCOPY, COLON (11/17/2022 11:00 AM EST) Narrative Transcriptions Jesus Do MD - 11/17/2022 11:00 AM EST [facility] Patient Name: Kip Rollins Attending MD:: JESUS DO MD Procedure Date: 11/17/2022 11:00 AM Date of : 1970 Age: 51 Admit Type: Outpatient Gender: Male Room: [facility] 05 Referring MD: MARTIN BAEZA DO Exam [...] monitored continuously. The Olympus adult variable colonoscope [id number] #[id number] was introduced through the anus and [...] 11:00 AM Procedure Code(s): --- Professional --- 28220, Colonoscopy, flexible; diagnostic, including collection of specimen(s) by brushing or washing, when performed (separateprocedure) --- Technical --- 74348, Colonoscopy, flexible; diagnostic, including collection of specimen(s) by brushing or washing, when performed (separateprocedure) Diagnosis Code(s): --- Professional --- Z86.010, Personal history of colonic polyps Z80.0, Family history of malignant neoplasm of digestive organs --- Technical --- Z86.010, Personal history of colonic polyps Z80.0, Family history of malignant neoplasm of digestive organs CPT copyright 2020 [employer]. All rights reserved. The codes documented in this report are preliminary and upon scrub tech reviewmay be revised to meet current compliance requirements. Procedure Date: 11/17/2022 11:00:51 AM [address] [place] [address] Martin Baeza DO GI PROCEDURE ORDERABLES Final Re sult from Last 3 Months or Most Recently Relevant to Health Maintenance [facility] & B O MEDICARE PART A & B MEDICARE PART A & B MEDICARE PART A & [place] [address] [place], [place] [id number] MEDICARE PART A & B MEDICARE PART A & B O MEDICARE PART A & B [address] [place], [place] [id number] MEDICARE PART A & B O MEDICARE PART A & B [employer] Care Teams Fan Engine Engineer Relationship Specialty Start Date End Date Martin Baeza DO [address] [place] [address] [email or web address] PCP - General Internal Medicine 04/23/25 Additional Source Comments The information contained in this document represents components of the legal health record. It is not the complete legal health record.[facility]
--- OUTSIDE RECORDS SUMMARY | 2025-08-27 12:37 | XMS_ITS | Encounter Summary ---
Author Organization [facility] Address [address] [facility] [address] [place] [address] Phone Care Team Providers Care Core Mounter Name Role Phone Justice Hull Primary Care Provider [phone] Encounter Details Date Type Department Care Team ([facility] st Contact Info) Description 04/23/2025 Procedure Pass [facility], Ct Scan - [address] [address] Social History Tobacco Use Types Packs/Day Years [...] 10:10 AM EDT Jojo Zendejas, RN * [place] Suicide Severity Rating Scale (Screener/Recent Self-Report) Question [...] on filedocumented in this encounter Care Teams Core Mounter Relationship Specialty Start Date End Date Justice Hull DO [address] [place] [address] [email or web address] PCP - General Internal Medicine 04/23/25 documented as of this encounter Additional Source Comments The information contained in this document represents components of the legal health record. It is not the complete legal health record.[facility]
--- OUTSIDE RECORDS SUMMARY | 2025-08-27 12:37 | XMS_ITS | Encounter Summary ---
Author Organization [facility] Address [address] [facility] [address] [place] [address] Phone Care Team Providers Care Program Clinician Name Role Phone Justice Hull Primary Care Provider [phone] Kelseastephanie Justice Maurilio Primary Care Provider [phone] Reason for Referral * MRI/CAT Scan - Closed Specialty Diagnoses / Procedures Referred By Melanie archer Referred To Contact Radiology Diagnoses Elbow pain, chronic, left Procedures MRI Elbow (Left) CHG MRI, JOINT UPPER EXTREM Milad Cuellar MD [facility] [place] [address] Phone: tel: fax: Referral ID Status Reason Start Date Expiration Date Visits Re quested Visits Authorized [id number] Closed 09/01/2024 10/11/2024 1 1 Encounter Details Date Type Department Care Team (Latest Contact Info) Description 09/01/2024 Transcribe Orders Virtual Department [address] [place] [address] Milad Cuellar MD [facility] [place] [address] Elbow pain, chronic, left (Primary Dx) Social [...] left documented in this encounter Care Teams Program Clinician Relationship Specialty Start Date End Date Justice Hull DO PCP - General 11/15/17 04/22/25 Justice Hull DO [address] [place] [address] [email or web address] PCP - General Internal Medicine 04/23/25 documented as of this encounter Additional Source Comments The information contained in this document represents components of the legal health record. It is not the complete legal health record.[facility]
--- OUTSIDE RECORDS SUMMARY | 2025-08-27 12:37 | XMS_ITS | Encounter Summary ---
Author Organization [facility] Address [address] [facility] [address] [place] [address] Phone Care Team Providers Care Transport Aide Name Role Phone Justice Hull DO Primary Care Provider [phone] Justice Hull DO Primary Care Provider [phone] Encounter Details Date Type Department Care Team (Late st Contact Info) Description 10/11/2018 Ancillary Orders Virtual Department [address] [place] [address] Yenyn Wiggins CNP [address] [place] [address] [email or web address] Right flank pain Social History Tobacco Use [...] flank pain. POS - [id number] Yenny Wiggins SENIOR ATTORNEY IMG XR ABDOMEN Edited Resu lt - Final documented in this encounter Visit Diagnoses Diagnosis Right flank pain Abdominal pain, unspecified site Right flank pain Abdominal pain, unspecified site documented in this encounter Care Teams Transport Aide Relationship Specialty Start Date End Date Justice Hull DO [email or web address] PCP - General 11/15/17 04/22/25 Justice Hull DO [address] [place] [address] [email or web address] PCP - General Internal Medicine 04/23/25 documented as of this encounter Additional Source Comments The information contained in this document represents components of the legal health record. It is not the complete legal health record.[facility]
--- OUTSIDE RECORDS SUMMARY | 2025-08-27 12:37 | XMS_ITS | Encounter Summary ---
Author Organization [facility] Address [address] [facility] [address] [place] [address] Phone Care Team Providers Care Screen Roller Name Role Phone Justice Hull DO Primary Care Provider [phone] KelseaJustice brown DO Primary Care Provider [phone] Encounter Details Date Type Department Care Team (Late st Contact Info) Description 09/01/2024 Procedure Pass [address] [place] [address] Social History Tobacco Use Types Packs/Day Years [...] on filedocumented in this encounter Care Teams Screen Roller Relationship Specialty Start Date End Date Justice Hull DO PCP - General 11/15/17 04/22/25 Justice Hull DO [address] [place] [address] PCP - General Internal Medicine 04/23/25 documented as of this encounter Additional Source Comments The information contained in this document represents components of the legal health record. It is not the complete legal health record.[facility]
--- OUTSIDE RECORDS SUMMARY | 2025-08-27 12:37 | XMS_ITS | Encounter Summary ---
Author Organization [facility] Address [address] [facility] [address] [place] [address] Phone Care Team Providers Care Acute Specialist Name Role Phone Justice Hull DO Primary Care Provider [phone] Justice Hull DO Primary Care Provider [phone] Encounter Details Date Type Department Care Team (Latest Contact Info) Description 08/18/2019 Transcribe Orders Virtual Department [address] [place] [address] Lili Braswell PA-C [address] [place] [address] Syncope and collapse (Primary Dx) Social History [...] Primary documented in this encounter Care Teams Acute Specialist Relationship Specialty Start Date End Date Justice Hull DO PCP - General 11/15/17 04/22/25 Justice Hull DO [address] [place] [address] [email or web address] PCP - General Internal Medicine 04/23/25 documented as of this encounter Additional Source Comments The information contained in this document represents components of the legal health record. It is not the complete legal health record.[facility]
--- OUTSIDE RECORDS SUMMARY | 2025-08-27 12:37 | XMS_ITS | Clinical Summary ---
Author Organization [place] [address] Care Team Providers Care Customer Care Associate Name Role Phone Justice Hull DO Primary Care Provider [phone] Allergies No known active allergies Medications No known medications Active Problems Problem Noted Date Diagnosed Date Pain from implanted hardware 12/01/2013 Social History Tobacco Use Types Packs/Day Years Used Date Smoking Tobacco: Former Cigarettes Q uit: 01/16/1989 Smokeless Tobacco: Never Tobacco Cessation:Counseling Given: Not Answered Alcohol Use Standard Drinks/Week Comments No 0 (1 standard drink = 0.6 oz pur e alcohol) Sex and Gender Information Value Date Recorded Sex Assigned at Not on file Legal Sex Male 7:18 AM EST Gender Identity Not on file Sexual Orientation Not on file Last Filed Vital Signs Vital Sign Reading Time Taken Comments Blood Pressure 150/86 07/20/2014 11:08 AM EDT Pulse 99 07/20/2014 11:08 AM EDT Temperature 36.2 C (97.2 F) 01/16/2014 12:59 PM EST Respiratory Rate 12 01/16/2014 1:27 PM EST Oxygen Saturation 94% 01/16/2014 1:36 PM EST Inhaled Oxygen Concentration - - Weight 89.4 kg (197 lb) 12/19/2024 3:17 PM EST Height 177.8 cm (5' 10 ) 12/19/2024 3:17 PM EST Body Mass Index 28.27 12/19/2024 3:17 PM EST Plan of Treatment Health Maintenance Due Date Last Done Comments CT Colonography 1972 Colonoscopy 1972 Colorectal Cancer Screening 1972 FIT DNA 1972 FIT 1972 Sigmoidoscopy (10 year) with FIT yearly 1972 Sigmoidoscopy 1972 HIV screen 1990 Hepatitis C Screening 1990 Lipid Screening 1990 Hepatitis B vaccine (0-59 yrs) and Risk (1) 1991 Tetanus/Diphtheria/Pertussis Vaccines (1 - Tdap) 12/06 Diabetes Screening (HgbA1C or Glucose) 2007 Pneumoccocal Vaccine: 50+ (1 of 1 - PCV) 2022 Zoster vaccine (1 of 2) 2022 Covid-19 Vaccine (1 - season) 2025 Influenza (Flu) vaccine (1 o f 1 - Influenza standard series) 07/13/2025 Insurance [employer] Care Teams Customer Care Associate Relationship Specialty Start Date End Date Justice Hull DO [address] [place], [place] [id number] PCP - General 10/04/10
--- OUTSIDE RECORDS SUMMARY | 2025-08-27 12:37 | XMS_ITS | Encounter Summary ---
Author Organization [facility] Address [address] [place] [address] [place] [address] Phone Care Team Providers Care Talent Acquisition Administrator Name Role Phone Justice Hull Primary Care Provider [phone] KelseaJustice brown Primary Care Provider [phone] Encounter Details Date Type Department Care Team (Latest Contact Info) Description 12/05/2019 Transcribe Orders Virtual Department [address] [place] [address] Almas Rosenberg MD [address] [place] [address], [address] [place] [address] [email or web address] Nonintractable headache, unspecified chronicity pattern, unspecified [...] convulsions documented in this encounter Care Teams Talent Acquisition Administrator Relationship Specialty Start Date End Date [email or web address] PCP - General 11/15/17 04/22/25 KelseaJustice brown [address] [place] [address] [email or web address] PCP - General Internal Medicine 04/23/25 documented as of this encounter Additional Source Comments The information contained in this document represents components of the legal health record. It is not the complete legal health record.[facility]
--- OUTSIDE RECORDS SUMMARY | 2025-08-27 12:37 | XMS_ITS | Encounter Summary ---
Author Organization [facility] Address [address] [place] [address] Phone Care Team Providers Care Workforce Development Assistant Name Role Phone KelseaJustice brown Primary Care Provider [phone] Justice Hull DO Primary Care Provider [phone] Encounter Details Date Type Department Care Team (Late st Contact Info) Description 11/07/2019 Procedure Pass [facility] Endoscopy Admitting Dept Virtual Department [address] [place] [phone] Social History Tobacco Use Types Packs/Day Years [...] on filedocumented in this encounter Care Teams Workforce Development Assistant Relationship Specialty Start Date End Date Justice Hull DO PCP - General 11/15/17 04/22/25 Justice Hull DO [address] [place] [address] (work) [email or web address] PCP - General Internal Medicine 04/23/25 documented as of this encounter Additional Source Comments The information contained in this document represents components of the legal health record. It is not the complete legal health record.[facility]
--- OUTSIDE RECORDS SUMMARY | 2025-08-27 12:37 | XMS_ITS | Encounter Summary ---
Author Organization [facility] Address [address] [facility] [address] [place] [address] Phone Care Team Providers Care Cane Pusher Name Role Phone Justice Hull DO Primary Care Provider [phone] Justice Hull DO Primary Care Provider [phone] Encounter Details Date Type Department Care Team (Latest Contact Info) Description 08/18/2019 Transcribe Orders Virtual Department [address] [place] [address] Lili Braswell PA-C [address] [place] [address] Syncope and collapse (Primary Dx) Social History [...] Primary documented in this encounter Care Teams Cane Pusher Relationship Specialty Start Date End Date Justice Hull DO PCP - General 11/15/17 04/22/25 Justice Hull DO [address] [place] [address] [email or web address] PCP - General Internal Medicine 04/23/25 documented as of this encounter Additional Source Comments The information contained in this document represents components of the legal health record. It is not the complete legal health record.[facility]
--- OUTSIDE RECORDS SUMMARY | 2025-08-27 12:38 | XMS_ITS | Encounter Summary ---
Author Organization [facility] Address [address] [facility] [address] [place] [address] Phone Care Team Providers Care Certified Hyperbaric Technologist Name Role Phone Justice Hull DO Primary Care Provider [phone] Justice Hull DO Primary Care Provider [phone] Encounter Details Date Type Department Care Team (Latest Contact Info) Description 10/11/2018 Transcribe Orders [facility] [address] [place] [address] Yenny Wiggins, ELASTIC ATTACHER COVERSTITCH [address] [place] [address] Abdominal pain, unspecified abdominal location (Primary Dx) [...] (10/11/2018 4:00 PM EST) COLOR Yellow Yellow [facility] CLARITY Clear [facility] GLUCOSE Negative Negative [facility] BILI Negative Negative [facility] KETONES Negative Negative [facility] SPECIFIC GRAVITY 1.020 1.005 - 1.030 [facility] BLOOD 1+(A) Negative [facility] PH 6.5 5.0 - 8.0 [facility] Protein-UA Negative Negative [facility] NITRITE Negative Negative [facility] Leukocyte esterase, ur Negative Negative [facility] Urine (Urine) 10/11/2018 4:0 0 PM EST 10/11/2018 4:24 PM EST Yenny Wiggins ELASTIC ATTACHER COVERSTITCH URINE ORDERABLES Final Resu lt [facility] [address] [place] [address] * Comprehensive metabolic panel (10/11/2018 4:00 PM EST) SODIUM 142 133 - 146 mmol/L [facility] POTASSIUM 3.6 3.3 - 5.1 mmol/L [facility] CHLORIDE 99 96 - 108 mmol/L [facility] CO2 30 21 - 35 mmol/L [facility] BUN 15 6 - 19 mg/dL [facility] CREATININE 1.10 0.5 - 1.5 mg/dL [facility] GLUCOSE 82 70 - 99 mg/dL [facility] ALBUMIN 4.0 3.9 - 4.8 g/dL [facility] TOTAL PROTEIN 7.1 6.5 - 8.0 g/dL [facility] CALCIUM 8.8 8.4 - 10.3 mg/dL [facility] ALKALINE PHOSPHATASE 73 39 - 117 U/L [facility] TOTAL BILIRUBIN 0.3 0.0 - 1.2 mg/dL [facility] AST 14 0 - 37 U/L [facility] ALT 15 0 - 40 U/L [facility] GLOBULIN 3.1 1 - 4.8 g/dL [facility] EGFR 81 >59 mL/min/1.7 3m2 [facility] Comment:If patient is black, multiply result by 1.159. Estimated glomerular filtration rate calculated using the CKD-EPI equation. ANION GAP 17 10 - 20 mmol/L [facility] Blood 10/11/2018 4:00 PM EST 10/11/2018 4:05 PM EST Yenny Hernandezki ELASTIC ATTACHER COVERSTITCH LAB BLOOD ORDERABLES Final Result [facility] [address] [place] [address] * (ABNORMAL) CBC and differential (10/11/2018 4:00 PM EST) WBC 8.34 3.40 - 11.20 K/uL [facility] RBC 4.59 4.50 - 5.50 M/uL [facility] HGB 14.1 13.0 - 17.0 g/dL [facility] HCT 40.5 40.0 - 51.0 % [facility] PLT 315 130 - 400 K/uL [facility] MCV 88.2 79.0 - 98.0 fL [facility] MCH 30.7 27.0 - 34.8 pg [facility] MCHC 34.8 31.5 - 36.0 g/dL [facility] RDW 11.6 10.8 - 14.6 % [facility] MPV 10.2 9.4 - 12.4 fl [facility] NRBC 0.00 0.00 /100 WBCs [facility] ABSOLUTE NRBC 0.00 0.00 K/uL [facility] DIFF METHOD Auto [facility] NEUTS 62.1 45.30 - 77.70 % [facility] LYMPHS 27.8 12.30 - 39.70 % [facility] MONOS 8.0 4.10 - 12.80 % [facility] EOS 1.1 0 - 7.2 % [facility] BASOS 0.6 0 - 2.80 % [facility] Granulocytes, immature (%) 0.4 0.0 - 0.9 % [facility] ABSOLUTE NEUTS 5.18 1.40 - 7.70 K/uL [facility] ABSOLUTE LYMPHS 2.32 0.60 - 3.20 K/uL [facility] ABSOLUTE MONOS 0.67(H) 0.11 - 0.59 K/uL [facility] ABSOLUTE EOS 0.09 0.01 - 0.50 K/uL [facility] ABSOLUTE BASOS 0.05 0.00 - 0.08 K/uL [facility] Granulocytes, immature 0.03 0.00 - 0.05 K/uL [facility] Blood 10/11/2018 4:00 PM EST 10/11/2018 4:05 PM EST us Yenny Wiggins ELASTIC ATTACHER COVERSTITCH LAB BLOOD ORDERABLES Final Result [facility] [address] [place] [address] documented in this encounter Visit Diagnoses Diagnosis Abdominal pain, unspecified abdominal location- Primary documented in this encounter Care Teams Certified Hyperbaric Technologist Relationship Specialty Start Date End Date Justice Hull DO PCP - General 11/15/17 04/22/25 Justice Hull DO [address] [place] [address] PCP - General Internal Medicine 04/23/25 documented as of this encounter Additional Source Comments The information contained in this document represents components of the legal health record. It is not the complete legal health record.[facility]
== END 2025-08-27 10:45 | disposition home or self-care (01) ==
LOC: HO.HOS 10:16
PROVIDERS: PCP Internal Medicine; Visit Provider Orthopaedic Surgery
DX: M25.312 Other instability, left shoulder (principal)
CPT/HCPCS: 99024

== ENCOUNTER 2025-09-04 06:23 | Day surgery (SDC) | payer OTHER, MEDICARE, SELFPAY ==
--- OUTSIDE RECORDS SUMMARY | 2025-07-29 12:58 | XMS_ITS | Encounter Summary ---
Author Organization [facility] Address [address] [facility] [address] [place] [address] Phone Care Team Providers Care Construction Teacher Name Role Phone Justice Hull DO Primary Care Provider [phone] Justice Hull DO Primary Care Provider [phone] Encounter Details Date Type Department Care Team (Late st Contact Info) Description 10/11/2018 Ancillary Orders Virtual Department [address] [place] [address] Yenny Wiggins, WINDY [address] [place] [address] [email or web address] Right flank pain Social History Tobacco Use Types Packs/Day Years Used Date Smoking Tobacco: Never Assessed Sex and Gender Information Value Date Recorded Sex Assigned at Male 08/05/2019 4:29 PM EDT Legal Sex Male 9:32 PM EDT Gender Identity Male 08/05/2019 4:29 PM EDT Sexual Orientation Straight 08/05/2019 4: 29 PM EDT documented as of this encounter Plan of Treatment Not on file documented as of this encounter Results * XR ABDOMEN 1 VIEW (10/11/2018 4:34 PM EST) Anatomical Region Laterality Modality Abdomen Radiographic Zaira ging 10/11/2018 5:25 PM EST Addenda Addendum by Sunita Hogan MD on 11/13/2018 9:49 AM EST Supine views of the abdomen obtained. No prior. There is some central pelvic calcification, possibly associated with rectal contents or prostate. Bladder stone <<< THOUGHT >>> unlikely. No stones seen along the expected course of the ureters or over either kidney. There is a large amount of stool overlying right kidney, however. No <<< ORGANOMEGALY >>>. <<< VISUALIZED >>> lung bases grossly clear. Bowel gas pattern nonobstructive. No bony destructive lesion seen. IMPRESSION: Calcification in the pelvis may be related to stool or prostate. No definite urinary tract stones to account for right flank pain. POS - [id number] Edited by: Farnaz Radford on 11/10/2018 11:50 AM Impressions 10/11/2018 5:27 PM EST Calcification in the pelvis may be related to stool or prostate. No definite urinary tract stones to account for right flank pain. POS - [id number] Narrative 10/11/2018 5:27 PM EST Supine views of the abdomen obtained. No prior. There is some central pelvic calcification, possibly associated with rectal contents or prostate. Bladder stone but unlikely. No stones seen along the expected course of the ureters or over either kidney. There is a large amount of stool overlying right kidney, however. No new cardiomegaly. It shows lung bases grossly clear. Bowel gas pattern nonobstructive. No bony destructive lesion seen. Procedure Note Sunita Hogan MD - 10/11/2018 Supine views of the abdomen obtained. No prior. There is some centralpelvic calcification, possibly associated with rectal contents orprostate. Bladder stone but unlikely. No stones seen along the expectedcourse of the ureters or over either kidney. There is a large amount ofstool overlying right kidney, however. No new cardiomegaly. It shows lungbases grossly clear. Bowel gas pattern nonobstructive. No bony destructivelesion seen. IMPRESSION: Calcification in the pelvis may be related to stool or prostate. Nodefinite urinary tract stones to account for right flank pain. POS - [id number] Yenny Wiggins FOOD PRODUCTION WORKER IMG XR ABDOMEN Edited Resu lt - Final documented in this encounter Visit Diagnoses Diagnosis Right flank pain Abdominal pain, unspecified site Right flank pain Abdominal pain, unspecified site documented in this encounter Care Teams Construction Teacher Relationship Specialty Start Date End Date Justice Hull DO PCP - General 11/15/17 04/22/25 Justice Hull DO [address] [place] [address] PCP - General Internal Medicine 04/23/25 documented as of this encounter Additional Source Comments The information contained in this document represents components of the legal health record. It is not the complete legal health record.[facility]
--- OUTSIDE RECORDS SUMMARY | 2025-07-29 12:58 | XMS_ITS | Encounter Summary ---
Author Organization [facility] Address [address] [facility] [address] [place] [address] Phone Care Team Providers Care Equipment Mechanic Specialist Name Role Phone Justice Hull Primary Care Provider [phone] Encounter Details Date Type Department Care Team ([facility] st Contact Info) Description 04/23/2025 Procedure Pass [facility], Ct Scan - [address] [address] Social History Tobacco Use Types Packs/Day Years Used Date Smoking Tobacco: Former Cigarettes Q uit: 1992 Smokeless Tobacco: Never Alcohol Use Standard Drinks/Week Comments Not Currently 1 (1 standard drink = 0.6 oz pur e alcohol) 1 every other week Education Answer Date Recorded Are you interested in more education? Not on peter e 03/09/2023 Are you concerned about learning? Not on file 03/09/2023 No 03/09/2023 No 03/09/2023 Food Answer Date Recorded Within the past 6 months we worried whether our food would run out before we got money to buy more. Never True 04/23/2025 Within the past 6 months the food we bought just didn't last and we didn't have enough money to get more. Never True Residential Stability Answer Date Recor ded What is your housing situation today? I have bird sing 04/23/2025 How many times have you move d in the past 12 months? Zero (I did not move) 04/23/2025 Paying for Meds Answer Date Recorded Do you have trouble paying for medicines? No 04/23/2025 Paying Utility Bills Answer Date Record ed Do you have trouble paying your heating or elect ricity bill? No 04/23/2025 Transportation Answer Date Recorded Has the lack of transportati on kept you from medical appointments or from getting medications? No 04/23/2025 Digital Access Answer Date Recorded No 04/23/2025 Yes 04/23/2025 Do you have reliable internet access at home? Ye s 04/23/2025 Do you have a device (e.g., phone, tablet, computer) with a working camera? Yes 04/23/2025 Intimate Partner Violence Answer Date R ecorded Are you denied basic needs s uch as food, clothing, or medical care? No 04/23/2025 In the past 12 months have y ou been in a relationship with a person who hurts, threatens, or tries to control you? No 04/23/2025 Are you denied basic needs s uch as food, clothing, or medical care? No 04/23/2025 In the past 12 months have y ou been in a relationship with a person who hurts, threatens, or tries to control you? No 04/23/2025 Sex and Gender Information Value Date Recorded Sex Assigned at Male 08/05/2019 4:29 PM EDT Legal Sex Male 9:32 PM EDT Gender Identity Male 08/05/2019 4:29 PM EDT Sexual Orientation Straight 08/05/2019 4: 29 PM EDT documented as of this encounter Functional Status * Calculated C-SSRS Risk Score (Lifetime/Recent) Answer Date of Assessment Author No Risk Indicated 04/23/2025 10:10 AM EDT Jojo Zendejas, RN * [place] Suicide Severity Rating Scale (Screener/Recent Self-Report) Question Answer Date of Assessment Author 1. Wish to be (Past 1 Month) No 025 10:10 AM EDT Jojo Zendejas, RN 2. Non-Specific Active Suici silvia Thoughts (Past 1 Month) No 04/23/2025 10:10 AM EDT Bertha Zendejas RN 6. Suicidal Behavior (Lifetime) No 10:10 AM EDT Jojo Zendejas, RN documented as of this encounter Plan of Treatment Not on file documented as of this encounter Visit Diagnoses Not on filedocumented in this encounter Care Teams Equipment Mechanic Specialist Relationship Specialty Start Date End Date Justice Hull DO [address] [place] [address] [email or web address] PCP - General Internal Medicine 04/23/25 documented as of this encounter Additional Source Comments The information contained in this document represents components of the legal health record. It is not the complete legal health record.[facility]
--- OUTSIDE RECORDS SUMMARY | 2025-07-29 12:59 | XMS_ITS | Encounter Summary ---
Author Organization [facility] Address [address] [facility] [address] [place] [address] Phone Care Team Providers Care Rapier Insertion Loom Fixer Name Role Phone Justice Hull DO Primary Care Provider [phone] Justice Hull DO Primary Care Provider [phone] Encounter Details Date Type Department Care Team (Latest Contact Info) Description 08/18/2019 Transcribe Orders Virtual Department [address] [place] [address] Lili Braswell PA-C [address] [place] [address] Syncope and collapse (Primary Dx) Social History Tobacco Use Types Packs/Day Years Used Date Smoking Tobacco: Never Smokeless Tobacco: Never Alcohol Use Standard Drinks/Week Comments Yes 0 (1 standard drink = 0.6 oz pur e alcohol) occasionally Sex and Gender Information Value Date Recorded Sex Assigned at Male 08/05/2019 4:29 PM EDT Legal Sex Male 9:32 PM EDT Gender Identity Male 08/05/2019 4:29 PM EDT Sexual Orientation Straight 08/05/2019 4: 29 PM EDT documented as of this encounter Plan of Treatment Not on file documented as of this encounter Visit Diagnoses Diagnosis Syncope and collapse- Primary documented in this encounter Care Teams Rapier Insertion Loom Fixer Relationship Specialty Start Date End Date Justice Hull DO PCP - General 11/15/17 04/22/25 Justice Hull DO [address] [place] [address] [email or web address] PCP - General Internal Medicine 04/23/25 documented as of this encounter Additional Source Comments The information contained in this document represents components of the legal health record. It is not the complete legal health record.[facility]
--- OUTSIDE RECORDS SUMMARY | 2025-07-29 12:59 | XMS_ITS | Encounter Summary ---
Author Organization [facility] Address [address] [facility] [address] [place] [address] Phone Care Team Providers Care Housekeeping/Laundry Name Role Phone Justice Hull DO Primary Care Provider [phone] KelseaJustice brown DO Primary Care Provider [phone] Encounter Details Date Type Department Care Team (Late st Contact Info) Description 09/01/2024 Procedure Pass [address] [place] [address] Social History Tobacco Use Types Packs/Day Years [...] on file 03/09/2023 No 03/09/2023 No 03/09/2023 Digital Access Answer Date Recorded No 04/07/2023 No 04/07/2023 Reliable internet access at home? Not on file 04/07/2023 Device with a working camera? Not on file Sex and Gender Information Value Date Recorded Sex Assigned at Male 08/05/2019 4:29 PM EDT Legal Sex Male 9:32 PM EDT Gender Identity Male 08/05/2019 4:29 PM EDT Sexual Orientation Straight 08/05/2019 4: 29 PM EDT documented as of this encounter Plan of Treatment Not on file documented as of this encounter Visit Diagnoses Not on filedocumented in this encounter Care Teams Housekeeping/Laundry Relationship Specialty Start Date End Date Justice Hull DO [email or web address] PCP - General 11/15/17 04/22/25 Justice Hull DO [address] [place] [address] [email or web address] PCP - General Internal Medicine 04/23/25 documented as of this encounter Additional Source Comments The information contained in this document represents components of the legal health record. It is not the complete legal health record.[facility]
--- OUTSIDE RECORDS SUMMARY | 2025-07-29 12:59 | XMS_ITS | Clinical Summary ---
Author Organization [facility] Address [address] [facility] [address] [place] [address] Phone Care Team Providers Care Hog Trader Name Role Phone Martin Baeza Primary Care Provider [phone] Allergies No known active allergies Medications SUMAtriptan succinate (IMITREX) 6 mg/0.5 mL PnIj Inject 6 mg under the skin as directed. Active Family History Medical History Relation Comments Cancer Father Rectal cancer Father Relation Status Comments Father (Age 67) Rectal Cancer Social History Tobacco Use Types Packs/Day Years Used Date Smoking Tobacco: Former Cigarettes Q uit: 1992 Smokeless Tobacco: Never Tobacco Cessation:Counseling Given: Not Answered Alcohol Use Standard Drinks/Week Comments Not Currently [...] Orientation Straight 08/05/2019 4: 29 PM EDT Last Filed Vital Signs Vital Sign Reading Time Taken Comments Blood Pressure 137/85 04/23/2025 4:14 PM EDT Pulse 71 04/23/2025 4:14 PM EDT Temperature 36.2 C (97.2 F) 04/23/2025 4:14 PM EDT Respiratory Rate 16 04/23/2025 4:14 PM EDT Oxygen Saturation 100% 04/23/2025 4:14 PM EDT Inhaled Oxygen Concentration - - Weight 90.7 kg (200 lb) 04/23/2025 10:09 AM EDT Height 177.8 cm (5' 10 ) 04/23/2025 10:09 AM EDT Body Mass Index 28.7 04/23/2025 10:09 AM EDT Plan of Treatment Health Maintenance Due Date Last Done Comments Adult Td,Tdap Booster 1972 LIPID PANEL 1972 DEPRESSION SCREENING 1984 SMOKING Hx and SMOKELESS TOBACCO SCREENING 1985 HEPATITIS C SCREENING 1990 HIV ONE-TIME SCREENING (18-6 5 YEARS) 1990 COLOGUARD 2017 FIT TEST 2017 FOBT 2017 SIGMOIDOSCOPY 2017 VIRTUAL COLONOSCOPY 2017 SCREENING FOR DIABETES 08/05/2022 08/05/2019 PNEUMOCOCCAL VACCINES (50+ years) (1 of 1 - PCV) 2022 ZOSTER VACCINES (1 of 2) 2022 INFLUENZA VACCINE (#1) 2025 COVID-19 VACCINE (2024-2 6 season) 2025 09/09/2021, 02/28/2021, 01/31/2021 COLONOSCOPY 11/17/2032 11/17/2022, 11/07/2019 COLORECTAL CANCER SCREENING 11/17/2032 HEPATITIS A VACCINES Aged Out No long er eligible based on patient's age to complete this topic HIB VACCINES Aged Out No longer eligi ble based on patient's age to complete this topic MENINGOCOCCAL VACCINES (ACWY) Aged Out No longer eligible based on patient's age to complete this topic MENINGOCOCCAL VACCINES (B) Aged Out N o longer eligible based on patient's age to complete this topic Medical Devices Implanted Type Area Family Services Worker Device Identifier Shelf Expiration Date Model / Serial / Lot R Elbow Pins And Plate Procedures Procedure Name Priority Date/Time Associated Diagnosis Comments ENDOSCOPY, COLON 11/17/2022 11:0 0 AM EST from Last 3 Months or Most Recently Relevant to Health Maintenance Results * ENDOSCOPY, COLON (11/17/2022 11:00 AM EST) Narrative Transcriptions Jesus Do MD - 11/17/2022 11:00 AM EST [facility] Patient Name: Kip Laura Attending MD:: JESUS DO MD Procedure Date: 11/17/2022 11:00 AM Date of : 1970 Age: 51 Admit Type: Outpatient Gender: Male Room: [facility] 05 Referring MD: MARTIN BAEZA DO Exam Type: Colonoscopy Indications: High risk colon cancer surveillance: Personalhistory of colonic polyps, Family history of colon cancerin a first-degree relative before age 60 years, Last colonoscopy: 2016 Medications: Monitored Anesthesia Care Procedure: Informed consent was obtained from the patientafter discussion of the indications, limitations, alternatives, benefits, and risks of the procedure. Risks specifically discussed include but are not limited to medication reactions, missed lesions, bleeding, perforation, or the need for emergent surgery. Throughout the procedure, the patient's blood pressure, pulse, end-tidal CO2, and oxygensaturations were monitored continuously. The Olympus adult variable colonoscope [id number] #4 was introduced through the anus and advanced to the terminal ileum. The colonoscopy was performedwithout difficulty. The patient tolerated the procedurewell. The quality of the bowel preparation was good. Anatomical landmarks were photographed. Complications: No immediate complications. Estimated blood loss:None. Findings: The rectum, recto-sigmoid colon, sigmoid colon, descending colon, splenic flexure, transversecolon, hepatic flexure, ascending colon, cecum,appendiceal orifice, ileocecal valve, ileum, rectum (on retroflexion) and ascending colon (on retroflexion) appeared normal. Impression: - The rectum, sigmoid colon, descending colon,splenic flexure, transverse colon, hepatic flexure,ascending colon, cecum, rectum (on retroflexion), ascending colon (on retroflexion), ileocecal valve, recto-sigmoid colon, terminal ileum and appendiceal orifice are normal. - No specimens collected. Recommendation: - Discharge patient to home. - Resume previous diet. - Continue present medications. - Repeat colonoscopy in 5 years for surveillance. - Your colonoscopy was normal with no polyps or colitis. JESUS DO MD 11/17/2022 11:22:57 AM This report has been signed electronically. Number of Addenda: 0 Note Initiated On: 11/17/2022 11:00 AM Procedure Code(s): --- Professional --- 30729, Colonoscopy, flexible; diagnostic, including collection of specimen(s) by brushing or washing, when performed (separateprocedure) --- Technical --- 59833, Colonoscopy, flexible; diagnostic, including collection of specimen(s) by brushing or washing, when performed (separateprocedure) Diagnosis Code(s): --- Professional --- Z86.010, Personal history of colonic polyps Z80.0, Family history of malignant neoplasm of digestive organs --- Technical --- Z86.010, Personal history of colonic polyps Z80.0, Family history of malignant neoplasm of digestive organs CPT copyright 2020 [employer]. All rights reserved. The codes documented in this report are preliminary and upon industrial ecology technician reviewmay be revised to meet current compliance requirements. Procedure Date: 11/17/2022 11:00:51 AM [address] [place] [address] Martin Baeza DO GI PROCEDURE ORDERABLES Final Re sult from Last 3 Months or Most Recently Relevant to Health Maintenance Insurance [facility] & B HMO MEDICARE PART A & B MEDICARE PART A & B MEDICARE PART A & B O MEDICARE PART A & B MEDICARE PART A & B O MEDICARE PART A & B HMO MEDICARE PART A & B O MEDICARE PART A & B [employer] Care Teams Hog Trader Relationship Specialty Start Date End Date Martin Baeza DO [address] [place] [address] [id number] [email or web address] PCP - General Internal Medicine 04/23/25 Additional Source Comments The information contained in this document represents components of the legal health record. It is not the complete legal health record.[facility]
--- OUTSIDE RECORDS SUMMARY | 2025-07-29 12:59 | XMS_ITS | Encounter Summary ---
Author Organization [facility] Address [address] [facility] [address] [place] [address] Phone Care Team Providers Care Road Grader Operator Name Role Phone Justice Hull DO Primary Care Provider [phone] Justice Hull DO Primary Care Provider [phone] Encounter Details Date Type Department Care Team (Latest Contact Info) Description 08/18/2019 Transcribe Orders Virtual Department [address] [place] [address] Lili Braswell PA-C [address] [place] [address] Syncope and collapse (Primary Dx) Social History [...] Primary documented in this encounter Care Teams Road Grader Operator Relationship Specialty Start Date End Date Justice Hull DO PCP - General 11/15/17 04/22/25 Justice Hull DO [address] [place] [address] [email or web address] PCP - General Internal Medicine 04/23/25 documented as of this encounter Additional Source Comments The information contained in this document represents components of the legal health record. It is not the complete legal health record.[facility]
--- OUTSIDE RECORDS SUMMARY | 2025-07-29 12:59 | XMS_ITS | Encounter Summary ---
Author Organization [facility] Address [address] [facility] [address] [place] [address] Phone Care Team Providers Care Forge Operator Name Role Phone Justice Hull Primary Care Provider [phone] KelseaJustice brown Primary Care Provider [phone] Encounter Details Date Type Department Care Team (Latest Contact Info) Description 12/05/2019 Transcribe Orders Virtual Department [address] [place] [address] Almas Rosenberg MD [address] [place] [address], [address] [place] [address] [email or web address] Nonintractable headache, unspecified chronicity pattern, unspecified headache type (Primary Dx); Loss of consciousness; Seizure Social History Tobacco Use Types Packs/Day Years Used Date Smoking Tobacco: Former Cigarettes Q uit: 1992 Smokeless Tobacco: Never Alcohol Use Standard Drinks/Week Comments Not Currently 0 (1 standard drink = 0.6 oz [...] as of this encounter Visit Diagnoses Diagnosis Nonintractable headache, unspecified chronicity pattern, unspecified headache type- Primary Loss of consciousness Other alteration of consciousness Seizure Other convulsions documented in this encounter Care Teams Forge Operator Relationship Specialty Start Date End Date BigJustice brwon PCP - General 11/15/17 04/22/25 KelseaJustice brown [address] [place] [address] PCP - General Internal Medicine 04/23/25 documented as of this encounter Additional Source Comments The information contained in this document represents components of the legal health record. It is not the complete legal health record.[facility]
--- OUTSIDE RECORDS SUMMARY | 2025-07-29 12:59 | XMS_ITS | Encounter Summary ---
Author Organization [facility] Address [address] [place] [address] Phone Care Team Providers Care Jewel Blocker And Sawyer Name Role Phone KelseaJustice brown Primary Care Provider [phone] Justice Hull DO Primary Care Provider [phone] Encounter Details Date Type Department Care Team (Late st Contact Info) Description 11/07/2019 Procedure Pass [facility] Endoscopy Admitting Dept Virtual Department [address] [place] [address] Social History Tobacco Use Types Packs/Day Years [...] on filedocumented in this encounter Care Teams Jewel Blocker And Sawyer Relationship Specialty Start Date End Date Justice Hull DO [email or web address] PCP - General 11/15/17 04/22/25 Justice Hull DO [address] [place] [address] (work) [email or web address] PCP - General Internal Medicine 04/23/25 documented as of this encounter Additional Source Comments The information contained in this document represents components of the legal health record. It is not the complete legal health record.[facility]
--- OUTSIDE RECORDS SUMMARY | 2025-07-29 12:59 | XMS_ITS | Encounter Summary ---
Author Organization [facility] Address [address] [facility] [address] [place] [address] Phone Care Team Providers Care Chief Science Officer Name Role Phone Justice Hull Primary Care Provider [phone] KelseaJustice brown Primary Care Provider [phone] Encounter Details Date Type Department Care Team (Latest Contact Info) Description 01/22/2020 Transcribe Orders Virtual Department [address] [place] [address] Almas Rosenberg MD [address] [place] [address], [address] [place] [address] [email or web address] Nonintractable headache, unspecified chronicity pattern, unspecified [...] convulsions documented in this encounter Care Teams Chief Science Officer Relationship Specialty Start Date End Date BigJustice brown PCP - General 11/15/17 04/22/25 KelseaJustice brown [address] [place] [address] PCP - General Internal Medicine 04/23/25 documented as of this encounter Additional Source Comments The information contained in this document represents components of the legal health record. It is not the complete legal health record.[facility]
--- OUTSIDE RECORDS SUMMARY | 2025-07-29 12:59 | XMS_ITS | Encounter Summary ---
Author Organization [facility] Address [address] [facility] [address] [place] [address] Phone Care Team Providers Care Can Piler Name Role Phone Justice Hull Primary Care Provider Kelseastephanie Justice Maurilio Primary Care Provider [phone] Reason for Referral * MRI/CAT Scan - Closed Specialty Diagnoses / Procedures Referred By Melanie archer Referred To Contact Radiology Diagnoses Elbow pain, chronic, left Procedures MRI Elbow (Left) CHG MRI, JOINT UPPER EXTREM Milad Cuellar MD [facility] [place] [address] Phone: tel: fax: Referral ID Status Reason Start Date Expiration Date Visits Re quested Visits Authorized [id number] Closed 09/01/2024 10/11/2024 1 1 Encounter Details Date Type Department Care Team (Latest Contact Info) Description 09/01/2024 Transcribe Orders Virtual Department [address] [place] [address] Milad Cuellar MD [facility] [place] [address] Elbow pain, chronic, left (Primary Dx) Social History Tobacco Use Types [...] documented as of this encounter Results * MRI ELBOW WITHOUT CONTRAST (LEFT) (09/20/2024 12:07 PM EST) Anatomical Region Laterality Modality Elbow Left Magnetic Resonan ce 09/22/2024 11:5 8 AM EST Impressions 09/22/2024 12:09 PM EST 1. Thinned and irregular common flexor tendon, likely reflecting a combination of postsurgical change and tendinosis with partial-thickness articular surface tearing. 2. Thickened and irregular common extensor tendon which likely reflects a combination of postsurgical change and tendinosis. 3. Medial subluxation of the ulnar nerve without thickening or abnormal signal. Areas surrounding of linear low signal within the surrounding subcutaneous fat may reflect postoperative scarring. Narrative 09/22/2024 12:09 PM EST MRI ELBOW WITHOUT CONTRAST (LEFT) Referring clinician's provided indication for this examination in Epic: Outside Radiology Order; Elbow pain, chronic, left TECHNIQUE: Multi-sequence, multi-planar MRI of the elbow without intravenous contrast. COMPARISON: None FINDINGS: Medial Elbow: Ulnar collateral ligament is intact. The common flexor tendon appears thickened and irregular with fluid signal extending deep to the articular surface fibers at the humeral attachment. The ulnar nerve is medially subluxed. Areas of linear low signal within the surrounding subcutaneous fat at the proximal aspect of the cubital tunnel. Normal caliber of the nerve without signal abnormality. Lateral Elbow: Lateral collateral ligament complex is intact. The common extensor tendon is thickened and irregular without evidence of tear. Other Tendons: The biceps, triceps, and brachialis are intact. Bone: No fracture, osteonecrosis, or focal lesion. Joints: No effusion, synovitis, or osteochondral abnormality. Procedure Note Db Bailey MD - 09/22/2024 MRI ELBOW WITHOUT CONTRAST (LEFT) Referring clinician's provided indication for this examination in Epic:Outside Radiology Order; Elbow pain, chronic, left TECHNIQUE: Multi-sequence, multi-planar MRI of the elbow withoutintravenous contrast. COMPARISON: None FINDINGS: Medial Elbow: Ulnar collateral ligament is intact. The common flexortendon appears thickened and irregular with fluid signal extending deep tothe articular surface fibers at the humeral attachment. The ulnar nerve ismedially subluxed. Areas of linear low signal within the surroundingsubcutaneous fat at the proximal aspect of the cubital tunnel. Normalcaliber of the nerve without signal abnormality. Lateral Elbow: Lateral collateral ligament complex is intact. The commonextensor tendon is thickened and irregular without evidence of tear. Other Tendons: The biceps, triceps, and brachialis are intact. Bone: No fracture, osteonecrosis, or focal lesion. Joints: No effusion, synovitis, or osteochondral abnormality. IMPRESSION: 1. Thinned and irregular common flexor tendon, likely reflecting acombination of postsurgical change and tendinosis with partial-thicknessarticular surface tearing. 2. Thickened and irregular common extensor tendon which likely reflects acombination of postsurgical change and tendinosis. 3. Medial subluxation of the ulnar nerve without thickening or abnormalsignal. Areas surrounding of linear low signal within the surroundingsubcutaneous fat may reflect postoperative scarring. Milad Cuellar MD IMG MR EXTREMITY Final Result documented in this encounter Visit Diagnoses Diagnosis Elbow pain, chronic, left- Primary Elbow pain, chronic, left documented in this encounter Care Teams Can Piler Relationship Specialty Start Date End Date Justice Hull DO PCP - General 11/15/17 04/22/25 Justice Hull DO [address] [place] [address] [email or web address] PCP - General Internal Medicine 04/23/25 documented as of this encounter Additional Source Comments The information contained in this document represents components of the legal health record. It is not the complete legal health record.[facility]
--- OUTSIDE RECORDS SUMMARY | 2025-07-29 12:59 | XMS_ITS | Encounter Summary ---
Author Organization [facility] Address [address] [facility] [address] [place] [address] Phone Care Team Providers Care Bottling Attendant Name Role Phone Justice Hull DO Primary Care Provider [phone] Justice Hull DO Primary Care Provider [phone] Encounter Details Date Type Department Care Team (Latest Contact Info) Description 08/19/2019 Transcribe Orders Virtual Department [address] [place] [address] Lili Braswell PA-C [address] [place] [address] Syncope and collapse (Primary Dx) Social History [...] Primary documented in this encounter Care Teams Bottling Attendant Relationship Specialty Start Date End Date Justice Hull DO PCP - General 11/15/17 04/22/25 Justice Hlul DO [address] [place] [address] [email or web address] PCP - General Internal Medicine 04/23/25 documented as of this encounter Additional Source Comments The information contained in this document represents components of the legal health record. It is not the complete legal health record.[facility]
--- OUTSIDE RECORDS SUMMARY | 2025-07-29 12:59 | XMS_ITS | Encounter Summary ---
Author Organization [facility] Address [address] [place] [address] Phone Care Team Providers Care Hat Former Name Role Phone Kelseastephanie Justice Maurilio Primary Care Provider [phone] Justice Hull DO Primary Care Provider [phone] Encounter Details Date Type Department Care Team ([facility] st Contact Info) Description 11/17/2022 Procedure Pass [facility] Endoscopy Admitting Dept Virtual Department [address] [place] [address] Social History Tobacco Use Types Packs/Day Years Used Date Smoking Tobacco: Former Cigarettes Q uit: 1992 Smokeless Tobacco: Never Alcohol Use Standard Drinks/Week Comments Not Currently 1 (1 standard drink = 0.6 oz pur e alcohol) 1 every other week Sex and Gender Information Value Date Recorded Sex Assigned at Male 08/05/2019 4:29 PM EDT Legal Sex Male 9:32 PM EDT Gender Identity Male 08/05/2019 4:29 PM EDT Sexual Orientation Straight 08/05/2019 4: 29 PM EDT documented as of this encounter Plan of Treatment Not on file documented as of this encounter Visit Diagnoses Not on filedocumented in this encounter Care Teams Hat Former Relationship Specialty Start Date End Date Justice Hull DO PCP - General 11/15/17 04/22/25 Justice Hull DO [address] [place] [address] [email or web address] PCP - General Internal Medicine 04/23/25 documented as of this encounter Additional Source Comments The information contained in this document represents components of the legal health record. It is not the complete legal health record.[facility]
--- OUTSIDE RECORDS SUMMARY | 2025-07-29 12:59 | XMS_ITS | Encounter Summary ---
Author Organization [facility] Address [address] [facility] [address] [place] [address] Phone Care Team Providers Care Proposal Development Manager Name Role Phone Justice Hull DO Primary Care Provider [phone] Justice Hull DO Primary Care Provider [phone] Encounter Details Date Type Department Care Team (Latest Contact Info) Description 10/11/2018 Transcribe Orders [facility] [address] [place] [address] Yenny Wiggins, PRINCIPAL ELECTRICAL ENGINEER [address] [place] [address] Abdominal pain, unspecified abdominal location (Primary Dx) Social History Tobacco Use Types [...] documented as of this encounter Results * (ABNORMAL) Urinalysis w/reflex Urine Culture (10/11/2018 4:00 PM EST) COLOR Yellow Yellow [facility] CLARITY Clear [facility] GLUCOSE Negative Negative [facility] BILI Negative Negative [facility] KETONES Negative Negative [facility] SPECIFIC GRAVITY 1.020 1.005 - 1.030 [facility] BLOOD 1+(A) Negative [facility] PH 6.5 5.0 - 8.0 [facility] Protein-UA Negative Negative [facility] NITRITE Negative Negative [facility] Leukocyte esterase, ur Negative Negative [facility] Urine (Urine) 10/11/2018 4:0 0 PM EST 10/11/2018 4:24 PM EST Yenny Wiggins PRINCIPAL ELECTRICAL ENGINEER URINE ORDERABLES Final Resu lt [facility] [address] [place] [address] * Comprehensive metabolic panel (10/11/2018 4:00 PM EST) SODIUM 142 133 - 146 mmol/L [facility] POTASSIUM 3.6 3.3 - 5.1 mmol/L [facility] CHLORIDE 99 96 - 108 mmol/L [facility] CO2 30 21 - 35 mmol/L [facility] BUN 15 6 - 19 mg/dL [facility] CREATININE 1.10 0.5 - 1.5 mg/dL [facility] GLUCOSE 82 70 - 99 mg/dL [facility] ALBUMIN 4.0 3.9 - 4.8 g/dL [facility] TOTAL PROTEIN 7.1 6.5 - 8.0 g/dL [facility] CALCIUM 8.8 8.4 - 10.3 mg/dL [facility] ALKALINE PHOSPHATASE 73 39 - 117 U/L [facility] TOTAL BILIRUBIN 0.3 0.0 - 1.2 mg/dL [facility] AST 14 0 - 37 U/L [facility] ALT 15 0 - 40 U/L [facility] GLOBULIN 3.1 1 - 4.8 g/dL [facility] EGFR 81 >59 mL/min/1.7 3m2 [facility] Comment:If patient is black, multiply result by 1.159. Estimated glomerular filtration rate calculated using the CKD-EPI equation. ANION GAP 17 10 - 20 mmol/L [facility] Blood 10/11/2018 4:00 PM EST 10/11/2018 4:05 PM EST Yenny Hernandezki PRINCIPAL ELECTRICAL ENGINEER LAB BLOOD ORDERABLES Final Result [facility] [address] [place] [address] * (ABNORMAL) CBC and differential (10/11/2018 4:00 PM EST) WBC 8.34 3.40 - 11.20 K/uL [facility] RBC 4.59 4.50 - 5.50 M/uL [facility] HGB 14.1 13.0 - 17.0 g/dL [facility] HCT 40.5 40.0 - 51.0 % [facility] PLT 315 130 - 400 K/uL [facility] MCV 88.2 79.0 - 98.0 fL [facility] MCH 30.7 27.0 - 34.8 pg [facility] MCHC 34.8 31.5 - 36.0 g/dL [facility] RDW 11.6 10.8 - 14.6 % [facility] MPV 10.2 9.4 - 12.4 fl [facility] NRBC 0.00 0.00 /100 WBCs [facility] ABSOLUTE NRBC 0.00 0.00 K/uL [facility] DIFF METHOD Auto [facility] NEUTS 62.1 45.30 - 77.70 % [facility] LYMPHS 27.8 12.30 - 39.70 % [facility] MONOS 8.0 4.10 - 12.80 % [facility] EOS 1.1 0 - 7.2 % [facility] BASOS 0.6 0 - 2.80 % [facility] Granulocytes, immature (%) 0.4 0.0 - 0.9 % [facility] ABSOLUTE NEUTS 5.18 1.40 - 7.70 K/uL [facility] ABSOLUTE LYMPHS 2.32 0.60 - 3.20 K/uL [facility] ABSOLUTE MONOS 0.67(H) 0.11 - 0.59 K/uL [facility] ABSOLUTE EOS 0.09 0.01 - 0.50 K/uL [facility] ABSOLUTE BASOS 0.05 0.00 - 0.08 K/uL [facility] Granulocytes, immature 0.03 0.00 - 0.05 K/uL [facility] Blood 10/11/2018 4:00 PM EST 10/11/2018 4:05 PM EST us Yenny Wiggins PRINCIPAL ELECTRICAL ENGINEER LAB BLOOD ORDERABLES Final Result [facility] [address] [place] [address] documented in this encounter Visit Diagnoses Diagnosis Abdominal pain, unspecified abdominal location- Primary documented in this encounter Care Teams Proposal Development Manager Relationship Specialty Start Date End Date Justice Hull DO PCP - General 11/15/17 04/22/25 Justice Hull DO [address] [place] [address] PCP - General Internal Medicine 04/23/25 documented as of this encounter Additional Source Comments The information contained in this document represents components of the legal health record. It is not the complete legal health record.[facility]
[2025-08-21 09:52] VITALS: BMI 28.7
[2025-09-04] VITALS (10 sets, daily range): BP systolic 89–126; BP diastolic 46–73; PULSE 59–69; RESP 7–16; TEMP 36.3–36.6; O2SAT 95–98; BMI 28.8
[2025-09-04] MEDS: Lactated Ringers 1,000 ML 100 ML IVCONT (06:46)
--- NOTE | 2025-09-04 09:00 | P.CONAN_ITS ---
Documented by User: Alena Steiner NP 08/21/25 10:22 HPI - Anesthesia Eval Consult details Narrative: 54 yr old male for left Shoulder Arthroscopy,distal clavicle,acromioplasty, with Mini Open RCR Right arm injury in 1996 requiring multiple surgeries, loss of fine motor skills PMFSH Active Problems Active Problems: All Active Problems (Updated 08/21/25 @ 09:51 by Hue Norman RN) Rotator cuff insufficiency of left shoulder (Acute) Left shoulder pain (Acute) Past Medical History Medical History Arm injury Family history of colon cancer Surgical History Surgical History Hx of elbow surgery History of surgery on upper extremity H/O colonoscopy Social History Social History Are you a primary day care center director to a significant other at home: No Do you presently have visiting nurse or other home services: No Patient Tobacco Use Status: Former Tobacco user Tobacco use type: Cigarette Years Smoked: 2 Use of substances other than those prescribed or required for medical reasons: No Have you been hit, kicked, punched, or otherwise hurt by someone within the past year? If so, by whom?: No Spiritual Healthcare Practices: no Yazdanism Healthcare Practices: no Cultural Healthcare Practices: no Are you DNR?: No Advance Directives: No (states is primary contact) Advance Directives on File: No Poor oral hygiene: No Meds Allergies Allergy/AdvReac Type Severity Reaction Status Date / Time No Known Allergies Allergy Verified 08/27/25 10:23 Exam Height,Weight and Vital Signs: Height 5 ft 10 in Weight 90.718 kg Pertinent Lab Results Pertinent Lab Results: Laboratory Tests 01/23/25 11:34 WBC 7.1 RBC 5.22 Hgb 16.2 Hct 45.4 Plt Count 253 Sodium 139 Potassium 4.0 BUN 19 H Documented by User: Tess Steen DO 09/04/25 09:18 [facility] Past Medical History Medical History Arm injury Family history of colon cancer Family History Family history of problems with anesthesia: No Surgical History Surgical History Hx of elbow surgery History of surgery on upper extremity H/O colonoscopy History of Problems with Anesthesia: No Social History Social History Are you a primary day care center director to a significant other at home: No Do you presently have visiting nurse or other home services: No Patient Tobacco Use Status: Former Tobacco user Tobacco use type: Cigarette Years Smoked: 2 Use of substances other than those prescribed or required for medical reasons: No Have you been hit, kicked, punched, or otherwise hurt by someone within the past year? If so, by whom?: No Spiritual Healthcare Practices: no Yazdanism Healthcare Practices: no Cultural Healthcare Practices: no Are you DNR?: No Advance Directives: No (states is primary contact) Advance Directives on File: No Poor oral hygiene: No Meds Allergies Allergy/AdvReac Type Severity Reaction Status Date / Time No Known Allergies Allergy Verified 08/27/25 10:23 Exam Exam Date and Time: 09/04/25 0900 Height,Weight and Vital Signs: Height 5 ft 10 in Weight 90.718 kg Vital Signs Temperature 97.8 F 09/04/25 06:47 Pulse Rate 59 09/04/25 06:47 Respiratory Rate 16 09/04/25 06:47 Blood Pressure 126/73 09/04/25 06:47 Pulse Oximetry 96 09/04/25 06:47 Oxygen Delivery Method Room Air 09/04/25 06:47 Temperature 97.8 F 09/04/25 06:47 Pulse Rate 59 09/04/25 06:47 Respiratory Rate 16 09/04/25 06:47 Blood Pressure 126/73 09/04/25 06:47 Pulse Oximetry 96 09/04/25 06:47 Oxygen Delivery Method Room Air 09/04/25 06:47 Airway Mallampati Class: II TM Dist: >3cm Neck ROM: Limited Loose/Missing/Broken Teeth: No (patient denies any loose or broken teeth) Heart: S1S2 Lungs: CTAB Assessment and Plan Assessment Anesthesia Assessment: Anesthesia Plan Discussed and Chart Reviewed Final Anesthetic Review Family History of Problems with Anesthesia: No History of Problems with Anesthesia: No NPO: Yes ASA Class: I Final Preanesthetic Review: No Changes in Pt Med Stat, Meds/Allgs Chart Reviewed, Consent Obtained/Reviewed and Anes Risks/Benef Reviewed Patient Risk: Low Procedure Risk: Low Anesthetic Plan Anesthetic Plan: GA, Regional Block (left brachial plexus block) and Agree w/ Assess. and Plan Disposition: Standard PACU
--- NOTE | 2025-09-04 11:51 | PM.OP ---
Brief Operative Note Date of Service: 09/04/25 Pre-op diagnosis: Left shoulder impingement syndrome, left shoulder acromioclavicular joint arthritis, left shoulder rotator cuff tear Post-op diagnosis: same Procedure: Left shoulder arthroscopic distal clavicle excision, left shoulder arthroscopic acromioplasty, left shoulder mini open rotator cuff repair Implants: 1 suture anchor ([employer] Twinfix anchor with #2 Ultrabraid suture) Surgeon: Paresh Corley MD Anesthesia: GETA and regional Was an Pressurization Mechanic used for this Procedure?: No Estimated blood loss (mL): 10 Pathology: none sent Condition: stable Disposition: PACU
--- NOTE | 2025-09-04 11:52 | P.OP_ITS ---
Operative Note Operative Note Date of Service: 09/04/25 Narrative: After the patient was identified as Jose Sanchez and his left shoulder was initialed by myself the patient was brought to the holding area where a left shoulder interscalene regional block was performed by the anesthesiologist in routine fashion. The patient was then brought to the operating room where general anesthesia was induced by the anesthesiologist in routine fashion. The patient was given 2 g of IV Ancef preoperatively for infection prophylaxis. Examination under anesthesia of the patient's left shoulder showed full passive range of motion of the patient's left shoulder when compared to the right. The patient was gently positioned in the beach chair position with all bony prominences well padded. The patient's left shoulder region and upper extremity were prepped and draped in sterile fashion. A formal time-out was completed. A #11 scalpel blade was used to make a posterior portal 2 cm inferior and 1 cm medial to the posterolateral corner of the acromion. Blunt trocar technique was used to enter the glenohumeral joint in routine fashion. An anterior portal was made just lateral to the coracoid process after proper positioning was confirmed using a spinal needle. Diagnostic arthroscopy showed minimal degenerative changes of the glenoid and humeral head articular surfaces. There was a full- thickness tear of the supraspinatus tendon. There was no evidence of injury to the biceps tendon or its insertion onto the glenoid. There was no inflammation of the anterior joint capsule. The arthroscope was then placed from the posterior portal into the subacromial space. A lateral portal was made 2 fingerbreadths lateral to the anterior lateral corner of the acromion. The ArthroCare Wand was used to ablate soft tissues along the undersurface of the acromion as well as to excise the coracoacromial ligament. There was a sharp spur along the undersurface of the acromion which was removed using the hooded bur. The arthroscope was then placed into the lateral portal and the acro mioplasty was completed with the bur in the posterior portal using the posterior aspect of the acromion as a cutting block. The ArthroCare Wand was then brought in through the anterior portal and was used to ablate soft tissues along the acromioclavicular joint and distal clavicle. The posterior and superior ligamentous structures were left intact. A distal clavicle excision of 8 mm was performed using the hooded bur. Any remaining bursal tissue was removed using the arthroscopic shaver. The subacromial space was irrigated and then drained. All arthroscopic instruments were removed. Sterile gloves were changed and the shoulder was once again prepped with Betadine. A #15 scalpel blade was used to extend the lateral portal to the lateral edge of the acromion. The subacromial tissues were dissected using electrocautery down to the superficial deltoid fascia. The trocar split in the anterior raphe of the deltoid was then extended to the lateral edge of the acromion using electrocautery and curved Leong scissors. Any remaining bursal tissue was removed using curved Leong scissors. Subacromial and subdeltoid adhesions were bluntly dissected. The undersurface of the acromion was palpated and it was smooth. A #2 Ethibond tag suture was placed into the supraspinatus tendon. The tendon was easily mobilized to its insertion point on the glenoid. The wound was irrigated with copious amounts of normal saline solution. One suture anchor was placed into the greater tuberosity in routine fashion. The rotator cuff repair was then performed using horizontal mattress sutures under minimal tension with the patient's elbow at their side. Following the repair the shoulder was taken through a full range of motion. The repair was stable. The wound was irrigated with copious amounts of normal saline solution. The superficial and deep deltoid fascia were closed with #1 Vicryl [id number] interrupted suture. The wound was once again irrigated. The subcutaneous tissues were closed with 2-0 Vicryl interrupted suture. The skin was closed with 3-0 Prolene subcuticular suture and Steri- Strips. The anterior and posterior portals were closed with 3-0 nylon interrupted suture. Dry sterile dressing was placed over all incisions. The patient's left upper extremity was placed into a sling. The patient was awoken and extubated in the operating room. The patient was transferred to the recovery room in stable condition.
== END 2025-09-04 13:46 | disposition home or self-care (01) ==
PROVIDERS: PCP Internal Medicine; Visit Provider Orthopaedic Surgery
PROC: (CPT 23412; principal; 2025-09-04 09:00)
DX: M75.102 Unspecified rotator cuff tear or rupture of left shoulder, not specified as traumatic (principal); M75.42 Impingement syndrome of left shoulder; M62.512 Muscle wasting and atrophy, not elsewhere classified, left shoulder; M25.512 Pain in left shoulder; M25.312 Other instability, left shoulder; Z98.890 Other specified postprocedural states; Z87.891 Personal history of nicotine dependence
CPT/HCPCS: 23412; 29824; 29826; C1713; J0131; J0165; J0665; J0690; J0696; J1100; J2003; J2250; J2371; J2405; J2704; J2795; J3010

== ENCOUNTER → 2025-09-04 06:23 | Outpatient (BNV) | payer OTHER, MEDICARE, SELFPAY | PROVIDERS: PCP Internal Medicine; Visit Provider Orthopaedic Surgery | DX: S46.012A Strain of muscle(s) and tendon(s) of the rotator cuff of left shoulder, initial encounter (principal); M75.42 Impingement syndrome of left shoulder; M19.012 Primary osteoarthritis, left shoulder | CPT/HCPCS: 23410; 29824 ==

== ENCOUNTER 2025-09-17 11:47 | Outpatient (AMB) | payer MEDICARE, OTHER, SELFPAY ==
--- NOTE | 2025-09-17 11:51 | A.OFFVIS_ITS ---
Intake Visit Reasons: PO LT shoulder 09/04/25 Intake Note: Kip 54 yr old male presents with complaints of mild to moderate discomfort in his left shoulder after undergoing left shoulder rotator cuff repair surgery on 09/04/2025. He has been resting his shoulder as per my instructions. He takes oxycodone as needed for his discomfort. He denies any fevers or chills. Allergies No Known Allergies Allergy (Verified 09/17/25 12:05) Medication List - Last Reconciled 09/17/25 by Paresh Corley MD oxycodone 10 mg (2 x 5 mg) PO Q4H PRN PFSH Medical History Arm injury Family history of colon cancer Surgical History Hx of elbow surgery History of surgery on upper extremity H/O colonoscopy Social History Are you a primary career development specialist to a significant other at home: No Do you presently have visiting nurse or other home services: No Patient Tobacco Use Status: Former Tobacco user Tobacco use type: Cigarette Years Smoked: 2 Physical Exam Extrem Other: Left shoulder examination shows that the surgical incisions are healing well, no erythema, minimal discomfort with gentle passive Assessment & Plan Assessment & Plan (1) Left shoulder pain: Code(s): M25.512 - Pain in left shoulder Category: Medical Plan Mr. Sanchez is doing very well after undergoing left shoulder rotator cuff repair surgery on 09/04/2025. His sutures were removed and Steri-Strips placed over his incisions. He will begin passive range of motion exercises which were demonstrated to him. He will contact me prior to his follow-up appointment in 4-6 weeks should any questions or concerns arise. Feel free to call me at any time should questions regarding his orthopedic management arise. Coding Level of Care Code Global (52438) Diagnoses Left shoulder pain M25.512
--- OUTSIDE RECORDS SUMMARY | 2025-09-17 14:46 | XMS_ITS | Encounter Summary ---
Author Organization [facility] Address [address] [facility] [address] [place] [address] Phone Care Team Providers Care Paper Twister Name Role Phone Della Justice Thorpe DO Primary Care Provider [phone] Justice Hull DO Primary Care Provider [phone] Encounter Details Date Type Department Care Team (Latest Contact Info) Description 08/19/2019 Transcribe Orders Virtual Department [address] [place] [address] Lili Braswell PA-C [address] [place] [address] [email or web address] Syncope and collapse (Primary Dx) Social History [...] Primary documented in this encounter Care Teams Paper Twister Relationship Specialty Start Date End Date Justice Hull DO PCP - General 11/15/17 04/22/25 Justice Hull DO [address] [place] [address] [email or web address] PCP - General Internal Medicine 04/23/25 documented as of this encounter Additional Source Comments The information contained in this document represents components of the legal health record. It is not the complete legal health record.[facility]
--- OUTSIDE RECORDS SUMMARY | 2025-09-17 14:46 | XMS_ITS | Encounter Summary ---
Author Organization [facility] Address [address] [facility] [address] [place] [address] Phone Care Team Providers Care Fruit And Vegetable Classer Name Role Phone Justice Hull Primary Care Provider [phone] Encounter Details Date Type Department Care Team ([facility] st Contact Info) Description 04/23/2025 Procedure Pass [facility], Ct Scan - [address] [address] Social History Tobacco Use Types Packs/Day Years [...] 10:10 AM EDT Jojo Zendejas, RN * [place] Suicide Severity Rating Scale (Screener/Recent Self-Report) Question [...] on filedocumented in this encounter Care Teams Fruit And Vegetable Classer Relationship Specialty Start Date End Date Justice Hull DO [address] [place] [address] [email or web address] PCP - General Internal Medicine 04/23/25 documented as of this encounter Additional Source Comments The information contained in this document represents components of the legal health record. It is not the complete legal health record.[facility]
--- OUTSIDE RECORDS SUMMARY | 2025-09-17 14:46 | XMS_ITS | Encounter Summary ---
Author Organization [facility] Address [address] [facility] [address] [place] [address] Phone Care Team Providers Care Beef Ribber Name Role Phone Justice Hull Primary Care Provider [phone] KelseaJustice brown Primary Care Provider [phone] Encounter Details Date Type Department Care Team (Latest Contact Info) Description 01/22/2020 Transcribe Orders Virtual Department [address] [place] [address] Almas Rosenberg MD [address] [place] [address], [address] [place] [address] [email or web address] Nonintractable headache, unspecified chronicity pattern, unspecified [...] convulsions documented in this encounter Care Teams Beef Ribber Relationship Specialty Start Date End Date BigJustice brown PCP - General 11/15/17 04/22/25 KelseaJustice brown [address] [place] [address] PCP - General Internal Medicine 04/23/25 documented as of this encounter Additional Source Comments The information contained in this document represents components of the legal health record. It is not the complete legal health record.[facility]
--- OUTSIDE RECORDS SUMMARY | 2025-09-17 14:46 | XMS_ITS | Encounter Summary ---
Author Organization [facility] Address [address] [place] [address] Phone Care Team Providers Care Chipper Operator Name Role Phone Kelseastephanie Justice Maurilio Primary Care Provider [phone] Justice Hull DO Primary Care Provider [phone] Encounter Details Date Type Department Care Team ([facility] st Contact Info) Description 11/17/2022 Procedure Pass [facility] Endoscopy Admitting Dept Virtual Department [address] [place] [address] Social History Tobacco Use Types Packs/Day Years [...] on filedocumented in this encounter Care Teams Chipper Operator Relationship Specialty Start Date End Date Justice Hull DO PCP - General 11/15/17 04/22/25 Justice Hull DO [address] [place] [address] [email or web address] PCP - General Internal Medicine 04/23/25 documented as of this encounter Additional Source Comments The information contained in this document represents components of the legal health record. It is not the complete legal health record.[facility]
--- OUTSIDE RECORDS SUMMARY | 2025-09-17 14:46 | XMS_ITS | Encounter Summary ---
Author Organization [facility] Address [address] [facility] [address] [place] [address] Phone Care Team Providers Care Solid Waste Facility Operator Name Role Phone Della Justice Thorpe DO Primary Care Provider [phone] Justice Hull DO Primary Care Provider [phone] Encounter Details Date Type Department Care Team (Latest Contact Info) Description 08/18/2019 Transcribe Orders Virtual Department [address] [place] [address] Lili Braswell PA-C [address] [place] [address] [email or web address] Syncope and collapse (Primary Dx) [...] Primary documented in this encounter Care Teams Solid Waste Facility Operator Relationship Specialty Start Date End Date Justice Hull DO PCP - General 11/15/17 04/22/25 Justice Hull DO [address] [place] [address] [email or web address] PCP - General Internal Medicine 04/23/25 documented as of this encounter Additional Source Comments The information contained in this document represents components of the legal health record. It is not the complete legal health record.[facility]
--- OUTSIDE RECORDS SUMMARY | 2025-09-17 14:46 | XMS_ITS | Data Portability ---
Author Organization [facility] Patient Home Address [address] [place] [address] Assessment No assessment recorded. Plan of Treatment Reminders Order Date Submit Date Provider Last Modified By Organization Details Last Modified Time Details Appointments MEDICARE ANNUAL WELLNESS 2024 11:30A M DR BAEZA Not available Not available Not available Lab CMP, serum or plasma 2023 024 [facility], [address] [place] [address], [id number], 10/15/2024 14:04:03 CBC w/ auto diff 2023 024 [facility], [address] [place] [address], [id number], 10/15/2024 14:04:03 PSA, serum or plasma 2023 024 [facility], [address] [place] [address], [address], 10/15/2024 14:04:03 lipid panel, blood 2023 024 [facility], [address] [place] [address], [address], 10/15/2024 14:04:03 CMP, serum or plasma 2022 023 [facility], [address] [place] [address], [address], 06/11/2023 11:11:39 lipid panel, blood 2022 023 [facility], [address] [place] [address], [address], 06/11/2023 11:11:39 PSA, serum or plasma 2022 023 [facility], [address] [place] [address], [address], 06/11/2023 11:11:39 CBC 2022 023 [facility], [address] [place] [address], [address], 06/11/2023 11:11:39 CMP, serum or plasma 2021 022 [facility], [address] [place] [address], [address], 05/09/2022 12:13:22 lipid panel, blood 2021 022 [facility], [address] [place] [address], [address], 05/05/2022 15:05:20 CBC w/ auto diff 2021 022 [facility], [address] [place] [address], [address], 05/05/2022 15:05:20 PSA, serum or plasma 2021 022 [facility], [address] [place] [address], [address], 05/05/2022 15:05:20 vitamin D, 25-hydrox y, total, serum 2021 022 [facility], [address] [place] [address], [address], 05/05/2022 15:05:20 TSH, serum or plasma 2021 022 [facility], [address] [facility], [place], [address], 05/05/2022 15:05:20 Referral orthopedi c surgeon referral 2021 022 [email or web address] 10 Teo Theodore MD, [address] [facility], [place], [address], 05/12/2022 10:34:[address] referral 2018 019 [facility] Kamran Marcum MD, [address] [place], [address], 08/22/2019 09:11:25 gastroent erologist referral 2018 019 [facility], [address] [place], [address], 08/22/2019 09:23:57 Procedures trans-tho racic echocardi ogram (TTE) (PROC) 2018 019 [facility], [address] [place], [address], 08/26/2019 10:31:50 holter monitor placement (PROC) 2018 019 [facility], [address] [place], [address], 08/26/2019 10:31:50 Surgeries None recorded. Imaging MRI, shoulder, w/o contrast - pt has a plate and screws in the right arm from orthopedi cs 2024 025 [facility] (Imaging), [address] [place], [address], 04/03/2025 16:26:05 CT, heart, w/o contrast, w/ coronary calcium score 2022 023 [facility], [address] [place], [address], 06/15/2023 09:21:33 US, carotid artery 2018 019 [facility], [address] [place], [address], 09/01/2019 08:06:58 Medication Orders None recorded. Patient TargetsNo targets recorded. Patient Instructions Encounter Date Encounter Id Patient Instructions Last Modified By Organization Details Last Modified Time 08/18/2019 [id number] nausea and vomiting: care instructions Not available 08/18/2019 14:36:53 fainting: care instructions Not available 08/18/2019 14:36:53 lightheadedness or faintness: care instructions Not available 08/18/2019 14:36:53 05/05/2022 [id number] hearing loss: ca re instructions [email or web address] Not available 05/05/2022 15:04:01 hearing evaluation* [email or web address] Not aman ilable 05/12/2022 09:26:26 Reason for Referral Neurologist Referral for Syn cope Referring Physician: Lili Braswell, Internal Medicine, Encounter Date: 08/18/2019 Train Brake Operator Referral for Screening for malignant neoplasm of colon Referring Physician: Lili Bras[facility], Encounter Date: 08/18/2019 Orthopedic Surgeon Referral for Left lateral elbow tendinopathy Referring Physician: Justice Baeza, Internal Medicine, Encounter [...] um score No observ ation record ed. [email or web address] [facility] [address] [place], [address], 06/29/2023 09:20:40 Result Notes None recorded. Problems Name Problem SNOMED Code Status Onset Date Resolution Date Notes Provider Name and Address Organization Details Recorded Time Hearing loss 71654002 Active 2021 Justice Baeza DO [address] [place] [address], [address], [facility] 2 15:02:29 Hearing loss 57629827 Active 2021 Justice Baeza DO [address] [place] [address], [address], [facility] 2 15:02:33 Left lateral elbow tendinopa thy 797219953493 100 Active 2021 Justice Baeza DO [address] [place] [address], [address], [facility] 2 15:04:28 Contact dermatiti s 05539576 Active 2022 Justice Baeza DO [address] [place] [address], [address], [facility] 3 15:35:40 Biceps tendiniti s 866765092 Active 2024 SHIVA LOREDO [address] [place] [address], [address], [facility] 5 12:27:19 Pain of left shoulder region Active 2024 SHIVA LOREDO [address] [place] [address], [address], [facility] 5 12:28:04 Problem Notes None recorded. Procedures Surgical History Date Name Laterality Status Provider Name and Address Organization Details Recorded Time 11/12/18 97 amputation of right upper extremity completed February SHWETA Braswell [address] [place] [address], [address], [facility] 08/18/2019 14:30:39 Imaging [...] Updated DateTime 03/25/2025 177.8 cm Ofeliadelbert Montaño [facility] 03/25/2025 12:01:20 Date Recorded Body height Body mass index (BMI) Body weight Oxygen saturation Oxygen saturation in Arterial blood by Pulse oximetry Heart rate Systolic And Diastolic Provider Name and Address Organization Details Last Updated DateTime 2 179.07 cm 27.7 kg/m2 35649.7 5 g 98 % 98 % 78 /min 152/82 mm[Hg] Suzanne Mtz [facility] 2 14:47:06 Date Recorded Body height Body mass index (BMI) Body weight Heart rate Oxygen saturation Oxygen saturation in Arterial blood by Pulse oximetry Systolic And Diastolic Provider Name and Address Organization Details Last Updated DateTime 3 177.8 cm 28.1 kg/m2 27120.7 5 g 67 /min 96 % 96 % 142/86 mm[Hg] Justice Baeza, DO [address] [place], [address], [facility] 3 09:31:34 Date Recorded Body height Body mass index (BMI) Body weight Heart rate Oxygen saturation Oxygen saturation in Arterial blood by Pulse oximetry Systolic And Diastolic Provider Name and Address Organization Details Last Updated DateTime 9 179.07 cm 27 kg/m2 70242.7 1 g 79 /min 98 % 98 % 120/82 mm[Hg] Krystyna Diallo [facility] 9 14:17:39 Date Recorded Body height Body mass index (BMI) Body weight Heart rate Oxygen saturation Oxygen saturation in Arterial blood by Pulse oximetry Systolic And Diastolic Provider Name and Address Organization Details Last Updated DateTime 4 177.8 cm 33.3 kg/m2 306349. 43 g 78 /min 96 % 96 % 136/80 mm[Hg] [facility] 4 13:44:48 Social History Question Answer Notes LastModified by [employer] Details LastModified Time Tobacco Smoking Status Former Smoker Not Available [facility] 03:36:23 What Was The Date Of Your Most Recent Tobacco Screening? 03/25/2025 [email or web address] Information not available 03/25/2025 How Much Tobacco Do You Smoke? 1 PPW [id number] Information not available 09/14/2020 How Many Years Have You Smoked Tobacco? 1 [id number] Information not available 09/14/2020 Sex: Unknown Functional Status Question Answer Note LastModified by [employer] Details LastModified Time Do you or have you ever used smokeless tobacco? Never used smokeless tobacco [id number] Information not available 09/14/2020 Do you or have you ever used e-cigarettes or vape? Never used electronic cigarettes [id number] Information not available 09/14/2020 Mental Status None recorded. Family History Relationship Description Onset Age of this Age Resolved Age Notes LastModified by Organization Details LastModified Time Father Squamous cell carcinoma of anal margin [email or web address] Not available 05/2019 14:40:14 Medical History Condition Response Coronary Artery Disease N Other N Gout N Kidney Stones N Blood Diseases N Breast Cancer N Blood Transfusion N Depression N COPD N Lung Disease N Defects or Inherited Disease N Anxiety Disorder N Muscle, Joint, or Bone Problems N Obesity N Vision or Eye Problems N Arthritis N Polyps N Infertility N Mental Disorder N Cancer N Varicosities N Stroke N Endometriosis N Bladder or Kidney Problems N High Cholesterol N Liver Disease N Headaches N Fibromyalgia N Kidney Disease N Allergies/Hayfever N Heart [...] Diagnosis SNOMED-CT Code Diagnosis ICD10 Code Diagnosis IMO Codes Diagnosis Note [id number] Justice Dedrick Baeza [facility] [address] [address] 10/11/2018 14:54:54 10/11/2018 16:56:55 Right flank pain 346815418 R10.9 to go to [facility] from [facility] for labs & X-ray [id number] Justice MaurilioVan Della [facility] [address],[place] [address] 08/18/2019 14:12:27 08/18/2019 15:20:37 Syncope 858735514 R55 Nausea and vomiting 1693 1999 R11.2 resolved, none since er Screening for malignant neoplasm of colon 681264863 Z12.11 [id number] Justice Baeza [facility] [address],[place] [address] 05/05/2022 14:36:46 05/05/2022 15:15:29 Active or passive immunization 673298098 Z23 utd Adult heal th examination 489965737 Z00.00 Hearing loss 72587037 H9 1.91 Left later al elbow tendinopathy 3702123410 47741 M77.12 [id number] Justice Baeza [facility] [address] [address] 06/08/2023 09:23:52 06/08/2023 09:54:46 Active or passive immunization 460796559 Z23 utd Adult heal th examination 666049074 Z00.00 [id number] Justice Dedrick Baeza [facility] [address],[place] [address] 10/15/2024 13:39:50 10/15/2024 14:13:29 Active or passive immunization 116499448 Z23 utd Adult heal th examination 349440436 Z00.00 stable and doing ok Depression screening 171 821892 Z13.31 neg [id number] Justice Baeza [facility] [address], [place] [address] 03/25/2025 11:48:21 03/25/2025 13:25:29 Biceps tendinitis 630840141 M67.922 [id number] will set up with MRI given physical exampt would like [place] Pain of le ft shoulder region 7410283655 M25.512 [id number] will fu after MRI, trying to move his ortho appt up based on imaging Depression screening 171 541477 Z13.31 5790168 negative Health Concerns Section Related Observation LastModified by Organization Detai ls LastModified Time None Recorded Concern Status LastModified by Organization Details LastModified Time None Recorded Advance Directives Directive None Recorded Payers Insurance Date Sequence Insurance Name Policy Number Policy Nogueira Covered Member ID Nogueira Member ID Guarantor Name 10/08/2024 1 [place] [facility] Kip Sanchez [id number] Kip Bilski 05/26/2025 2 [facility] [id number] Kip Bilski [id number] Kip Bilski 07/27/2025 1 [place] [facility] Valid[employer] SERVICES Kip Howard Bilski [id number] Kip Navarroski Notes Date Note Type Note Provider Name a nd Address Organization Details Recorded Time 9 text/html ROS as noted in the HPI felt lightheaded and then passed out while [...] headaches, dizziness/lightheaded ness, rashes, or nail changes. February SHWETA Braswell [address] [facility], [place], [address], [facility] 08/18/2019 14:43:09 2 text/html Annual WellnessReported by PatientSocial/Behavio ral HistoryFor diet and nutrition, patient reportshealthy diet. For fracture risk, patient reportsno history of fractures,no recent explained fracture,no sudden unexplained fractures, andno previous musculoskeletal injuries. For physical activity, patient reportsexercises on a regular basis,recent increase in physical activity, andgood physical condition. For additional lifestyle factors, patient reportsno tobacco use,no alcohol intake, andstopped drinking alcohol.Mental Status:For depression risk, patient reportsnever feels sad, empty, or tearful,no loss of interest in activities,no significant changes in weight,no sleep disturbances or insomnia,no agitation,no loss of energy,no feelings of worthlessness or guilt,no thoughts of suicide,no history of depression, andno history of mood disorders.Functional AbilityFor hearing, patient reportsno loss of hearing. For vision, patient reportsno vision problems.ROS as noted in the HPI Justice Baeza DO [address] [place] [address], [address], [facility] 05/05/2022 15:08:55 3 text/html Annual WellnessReported by PatientSocial/Behavio ral HistoryFor diet and nutrition, patient reportshealthy diet. For fracture risk, patient reportsno history of fractures,no recent explained fracture,no sudden unexplained fractures, andno previous musculoskeletal injuries. For physical activity, patient reportsexercises on a regular basis,recent increase in physical activity, andgood physical condition. For additional lifestyle factors, patient reportsno tobacco use,no alcohol intake, andstopped drinking alcohol.Mental Status:For depression risk, patient reportsnever feels sad, empty, or tearful,no loss of interest in activities,no significant changes in weight,no sleep disturbances or insomnia,no agitation,no loss of energy,no feelings of worthlessness or guilt,no thoughts of suicide,no history of depression, andno history of mood disorders.Functional AbilityFor hearing, patient reportsno loss of hearing. For vision, patient reportsno vision problems.ROS as noted in the HPI feels well has lost 10 lbs Justice Baeza DO [address] [place] [address], [address], [facility] 06/08/2023 09:51:56 4 text/html Annual WellnessReported by PatientROS as noted in the HPI Justice Baeza DO [address] [place], [address], [facility] 10/15/2024 14:11:56 5 text/html ROS as noted in the HPI c/o L shoulder pain The patient reports [...] dependency of his left shoulder SHIVA LOREDO [address] [place], [address], [facility] 03/25/2025 12:37:13
--- OUTSIDE RECORDS SUMMARY | 2025-09-17 14:46 | XMS_ITS | Encounter Summary ---
Author Organization [facility] Address [address] [facility] [address] [place] [address] Phone Care Team Providers Care Surface Grinder Tender Name Role Phone Justice Hull DO Primary Care Provider [phone] KesleaJustice brown DO Primary Care Provider [phone] Encounter Details Date Type Department Care Team (Late st Contact Info) Description 09/01/2024 Procedure Pass [address] [place] [address] Social History Tobacco Use Types Packs/Day Years [...] on filedocumented in this encounter Care Teams Surface Grinder Tender Relationship Specialty Start Date End Date Justice Hull DO PCP - General 11/15/17 04/22/25 Justice Hull DO [address] [place] [address] PCP - General Internal Medicine 04/23/25 documented as of this encounter Additional Source Comments The information contained in this document represents components of the legal health record. It is not the complete legal health record.[facility]
--- OUTSIDE RECORDS SUMMARY | 2025-09-17 14:46 | XMS_ITS | Encounter Summary ---
Author Organization [facility] Address [address] [facility] [address] [place] [address] Phone Care Team Providers Care Preschool Principal Name Role Phone Della Justice Thorpe DO Primary Care Provider [phone] Justice Hull DO Primary Care Provider [phone] Encounter Details Date Type Department Care Team (Latest Contact Info) Description 08/18/2019 Transcribe Orders Virtual Department [address] [place] [address] Lili Braswell PA-C [address] [place] [address] [email or web address] Syncope and collapse (Primary Dx) [...] Primary documented in this encounter Care Teams Preschool Principal Relationship Specialty Start Date End Date Justice Hull DO PCP - General 11/15/17 04/22/25 Justice Hull DO [address] [place] [address] [email or web address] PCP - General Internal Medicine 04/23/25 documented as of this encounter Additional Source Comments The information contained in this document represents components of the legal health record. It is not the complete legal health record.[facility]
--- OUTSIDE RECORDS SUMMARY | 2025-09-17 14:46 | XMS_ITS | Clinical Summary ---
Author Organization [facility] [place] [address] Care Team Providers Care Slider Assembler Name Role Phone Justice Hull DO Primary Care Provider [phone] Allergies No known active allergies Medications No [...] of 2) 2022 Covid-19 Vaccine (1 - 2024- season) 2025 Influenza (Flu) vaccine (1 o f 1 - Influenza standard series) 07/13/2025 Insurance [employer] Care Teams Slider Assembler Relationship Specialty Start Date End Date Justice Hull DO [address] [place], [place] [id number] PCP - General 10/04/10
--- OUTSIDE RECORDS SUMMARY | 2025-09-17 14:46 | XMS_ITS | Encounter Summary ---
Author Organization [facility] Address [address] [place] [address] Phone Care Team Providers Care Material Yard Clerk Name Role Phone KelseaJustice brown Primary Care Provider [phone] Justice Hull DO Primary Care Provider [phone] Encounter Details Date Type Department Care Team (Late st Contact Info) Description 11/07/2019 Procedure Pass [facility] Endoscopy Admitting Dept Virtual Department [address] [place] [address] Social History Tobacco Use Types Packs/Day Years [...] on filedocumented in this encounter Care Teams Material Yard Clerk Relationship Specialty Start Date End Date Justice Hull DO [email or web address] PCP - General 11/15/17 04/22/25 Justice Hull DO [address] [place] [address] (work) [email or web address] PCP - General Internal Medicine 04/23/25 documented as of this encounter Additional Source Comments The information contained in this document represents components of the legal health record. It is not the complete legal health record.[facility]
--- OUTSIDE RECORDS SUMMARY | 2025-09-17 14:46 | XMS_ITS | Encounter Summary ---
Author Organization [facility] Address [address] [facility] [address] [place] [address] Phone Care Team Providers Care Broadcast Operations Technician Name Role Phone Justice Hull Primary Care Provider Kelseastephanie Justice Maurilio Primary Care Provider [phone] Reason for Referral * MRI/CAT Scan - Closed Specialty Diagnoses / Procedures Referred By Melanie archer Referred To Contact Radiology Diagnoses Elbow pain, chronic, left Procedures MRI Elbow (Left) CHG MRI, JOINT UPPER EXTREM Milad Cuellar MD [facility] [place] [address] Phone: tel: fax: Referral ID Status Reason Start Date Expiration Date Visits Re quested Visits Authorized [id number] Closed 09/01/2024 10/11/2024 1 1 Encounter Details Date Type Department Care Team (Latest Contact Info) Description 09/01/2024 Transcribe Orders Virtual Department [address] [place] [address] Milad Cuellar MD [facility] [place] [address] Elbow pain, chronic, left (Primary Dx) Social [...] left documented in this encounter Care Teams Broadcast Operations Technician Relationship Specialty Start Date End Date Justice Hull DO PCP - General 11/15/17 04/22/25 Justice Hull DO [address] [place] [address] [email or web address] PCP - General Internal Medicine 04/23/25 documented as of this encounter Additional Source Comments The information contained in this document represents components of the legal health record. It is not the complete legal health record.[facility]
--- OUTSIDE RECORDS SUMMARY | 2025-09-17 14:47 | XMS_ITS | Encounter Summary ---
Author Organization [facility] Address [address] [facility] [address] [place] [address] Phone Care Team Providers Care Business Risk Analyst Name Role Phone Justice Hull DO Primary Care Provider [phone] Justice Hull DO Primary Care Provider [phone] Encounter Details Date Type Department Care Team (Late st Contact Info) Description 10/11/2018 Ancillary Orders Virtual Department [address] [place] [address] Yenny Wiggins CNP [address] [place] [address] [email or web address] Right flank pain Social History Tobacco Use [...] flank pain. POS - [id number] Yenny Wiggins FRONT DESK WORKER IMG XR ABDOMEN Edited Resu lt - Final documented in this encounter Visit Diagnoses Diagnosis Right flank pain Abdominal pain, unspecified site Right flank pain Abdominal pain, unspecified site documented in this encounter Care Teams Business Risk Analyst Relationship Specialty Start Date End Date Justice Hull DO [email or web address] PCP - General 11/15/17 04/22/25 Justice Hull DO [address] [place] [address] [email or web address] PCP - General Internal Medicine 04/23/25 documented as of this encounter Additional Source Comments The information contained in this document represents components of the legal health record. It is not the complete legal health record.[facility]
--- OUTSIDE RECORDS SUMMARY | 2025-09-17 14:47 | XMS_ITS | Encounter Summary ---
Author Organization [facility] Address [address] [place] [address] [place] [address] Phone Care Team Providers Care Restaurant Busser Name Role Phone Justice Hull Primary Care Provider [phone] KelseaJustice brown Primary Care Provider [phone] Encounter Details Date Type Department Care Team (Latest Contact Info) Description 12/05/2019 Transcribe Orders Virtual Department [address] [place] [address] Almas Rosenberg MD [address] [place] [address], [address] [place] [address] [email or web address] Nonintractable headache, unspecified chronicity pattern, unspecified [...] convulsions documented in this encounter Care Teams Restaurant Busser Relationship Specialty Start Date End Date BigJustice brown [email or web address] PCP - General 11/15/17 04/22/25 KelseaJustice brown [address] [place] [address] [email or web address] PCP - General Internal Medicine 04/23/25 documented as of this encounter Additional Source Comments The information contained in this document represents components of the legal health record. It is not the complete legal health record.[facility]
--- OUTSIDE RECORDS SUMMARY | 2025-09-17 14:47 | XMS_ITS | Clinical Summary ---
Author Organization [facility] Address [address] [facility] [address] [place] [address] Phone Care Team Providers Care Managed Care Coordinator Name Role Phone Martin Baeza Primary Care Provider [phone] Allergies No known active allergies Medications SUMAtriptan [...] this topic Medical Devices Implanted Type Area Water Safety Instructor Device Identifier Shelf Expiration Date Model / Serial / Lot R Elbow Pins And Plate Procedures Procedure Name Priority Date/Time Associated Diagnosis Comments ENDOSCOPY, COLON 11/17/2022 11:0 0 AM EST from Last 3 Months or Most Recently Relevant to Health Maintenance Results * ENDOSCOPY, COLON (11/17/2022 11:00 AM EST) Narrative Transcriptions Jesus Do MD - 11/17/2022 11:00 AM EST [facility] Patient Name: Kip Rollins Attending MD:: JESUS DO MD Procedure Date: 11/17/2022 11:00 AM Date of : 1970 Age: 51 Admit Type: Outpatient Gender: Male Room: [facility] 05 Referring MD: MARTIN BAEZA DO Exam [...] monitored continuously. The Olympus adult variable colonoscope [id number] #[id number] was introduced through the anus and [...] 11:00 AM Procedure Code(s): --- Professional --- 29665, Colonoscopy, flexible; diagnostic, including collection of specimen(s) by brushing or washing, when performed (separateprocedure) --- Technical --- 53631, Colonoscopy, flexible; diagnostic, including collection of specimen(s) by brushing or washing, when performed (separateprocedure) Diagnosis Code(s): --- Professional --- Z86.010, Personal history of colonic polyps Z80.0, Family history of malignant neoplasm of digestive organs --- Technical --- Z86.010, Personal history of colonic polyps Z80.0, Family history of malignant neoplasm of digestive organs CPT copyright 2020 [employer]. All rights reserved. The codes documented in this report are preliminary and upon core inserter reviewmay be revised to meet current compliance requirements. Procedure Date: 11/17/2022 11:00:51 AM [address] [place] [address] Martin Baeza DO GI PROCEDURE ORDERABLES Final Re sult from Last 3 Months or Most Recently Relevant to Health Maintenance [facility] A & B O MEDICARE PART A & B MEDICARE PART A & B MEDICARE PART A & [place] [address] [place] [id number] MEDICARE PART A & B MEDICARE PART A & B O MEDICARE PART A & [place] [address] [place] [id number] MEDICARE PART A & B O MEDICARE PART A & B [employer] Care Teams Managed Care Coordinator Relationship Specialty Start Date End Date Martin Baeza DO [address] [place] [address] [email or web address] PCP - General Internal Medicine 04/23/25 Additional Source Comments The information contained in this document represents components of the legal health record. It is not the complete legal health record.[facility]
--- OUTSIDE RECORDS SUMMARY | 2025-09-17 14:47 | XMS_ITS | Encounter Summary ---
Author Organization [facility] Address [address] [place] [address] Phone Care Team Providers Care Computing Consultant Name Role Phone Justice Hull DO Primary Care Provider [phone] Justice Hull DO Primary Care Provider [phone] Encounter Details Date Type Department Care Team (Latest Contact Info) Description 10/11/2018 Transcribe Orders [facility] Main [address] [place] [address] Yenny Wiggins, PORCELAIN TECHNICIAN [address] [place] [address] Abdominal pain, unspecified abdominal location (Primary Dx) [...] (10/11/2018 4:00 PM EST) COLOR Yellow Yellow [facility] CLARITY Clear [facility] GLUCOSE Negative Negative [facility] BILI Negative Negative [facility] KETONES Negative Negative [facility] SPECIFIC GRAVITY 1.020 1.005 - 1.030 [facility] BLOOD 1+(A) Negative [facility] PH 6.5 5.0 - 8.0 [facility] Protein-UA Negative Negative [facility] NITRITE Negative Negative [facility] Leukocyte esterase, ur Negative Negative [facility] Urine (Urine) 10/11/2018 4:0 0 PM EST 10/11/2018 4:24 PM EST Yenny Wiggins PORCELAIN TECHNICIAN LAB URINE ORDERABLES Final Result [facility] [address] [place] [address] * Comprehensive metabolic panel (10/11/2018 4:00 PM EST) SODIUM 142 133 - 146 mmol/L [facility] POTASSIUM 3.6 3.3 - 5.1 mmol/L [facility] CHLORIDE 99 96 - 108 mmol/L [facility] CO2 30 21 - 35 mmol/L [facility] BUN 15 6 - 19 mg/dL [facility] CREATININE 1.10 0.5 - 1.5 mg/dL [facility] GLUCOSE 82 70 - 99 mg/dL [facility] ALBUMIN 4.0 3.9 - 4.8 g/dL [facility] TOTAL PROTEIN 7.1 6.5 - 8.0 g/dL [facility] CALCIUM 8.8 8.4 - 10.3 mg/dL [facility] ALKALINE PHOSPHATASE 73 39 - 117 U/L [facility] TOTAL BILIRUBIN 0.3 0.0 - 1.2 mg/dL [facility] AST 14 0 - 37 U/L [facility] ALT 15 0 - 40 U/L [facility] GLOBULIN 3.1 1 - 4.8 g/dL [facility] EGFR 81 >59 mL/min/1.7 3m2 [facility] Comment:If patient is black, multiply result by 1.159. Estimated glomerular filtration rate calculated using the CKD-EPI equation. ANION GAP 17 10 - 20 mmol/L [facility] Blood 10/11/2018 4:00 PM EST 10/11/2018 4:05 PM EST Yenny Hernandezki PORCELAIN TECHNICIAN LAB BLOOD BKR ORDERABLES Fi nal Result [facility] [address] [place], [place] [id number] * (ABNORMAL) CBC and differential (10/11/2018 4:00 PM EST) WBC 8.34 3.40 - 11.20 K/uL [facility] RBC 4.59 4.50 - 5.50 M/uL [facility] HGB 14.1 13.0 - 17.0 g/dL [facility] HCT 40.5 40.0 - 51.0 % [facility] PLT 315 130 - 400 K/uL [facility] MCV 88.2 79.0 - 98.0 fL [facility] MCH 30.7 27.0 - 34.8 pg [facility] MCHC 34.8 31.5 - 36.0 g/dL [facility] RDW 11.6 10.8 - 14.6 % [facility] MPV 10.2 9.4 - 12.4 fl [facility] NRBC 0.00 0.00 /100 WBCs [facility] ABSOLUTE NRBC 0.00 0.00 K/uL [facility] DIFF METHOD Auto [facility] NEUTS 62.1 45.30 - 77.70 % [facility] LYMPHS 27.8 12.30 - 39.70 % [facility] MONOS 8.0 4.10 - 12.80 % [facility] EOS 1.1 0 - 7.2 % [facility] BASOS 0.6 0 - 2.80 % [facility] Granulocytes, immature (%) 0.4 0.0 - 0.9 % [facility] ABSOLUTE NEUTS 5.18 1.40 - 7.70 K/uL [facility] ABSOLUTE LYMPHS 2.32 0.60 - 3.20 K/uL [facility] ABSOLUTE MONOS 0.67(H) 0.11 - 0.59 K/uL [facility] ABSOLUTE EOS 0.09 0.01 - 0.50 K/uL [facility] ABSOLUTE BASOS 0.05 0.00 - 0.08 K/uL [facility] Granulocytes, immature 0.03 0.00 - 0.05 K/uL [facility] Blood 10/11/2018 4:00 PM EST 10/11/2018 4:05 PM EST us Yenny Connor Feliciano PORCELAIN TECHNICIAN LAB BLOOD BKR ORDERABLES Fi nal Result Performing Organization Address City/State/[facility] Co de Phone Number [facility] [address] [place] [address] documented in this encounter Visit Diagnoses Diagnosis Abdominal pain, unspecified abdominal location- Primary documented in this encounter Care Teams Computing Consultant Relationship Specialty Start Date End Date Justice Hull DO PCP - General 11/15/17 04/22/25 Justice Hull DO [address] [place] [address] PCP - General Internal Medicine 04/23/25 documented as of this encounter Additional Source Comments The information contained in this document represents components of the legal health record. It is not the complete legal health record.[facility]
== END 2025-09-17 12:28 | disposition home or self-care (01) ==
PROVIDERS: PCP Internal Medicine; Visit Provider Orthopaedic Surgery
DX: M25.512 Pain in left shoulder (principal)
CPT/HCPCS: 99024

== ENCOUNTER → 2025-09-17 11:47 | Outpatient (BNVA) | payer OTHER, MEDICARE, SELFPAY | PROVIDERS: PCP Internal Medicine; Visit Provider Orthopaedic Surgery | DX: M25.512 Pain in left shoulder (principal) | CPT/HCPCS: 99212 ==

== ENCOUNTER 2025-10-21 11:40 | Outpatient (AMB) | payer OTHER, MEDICARE, SELFPAY ==
--- NOTE | 2025-10-21 11:46 | MHC.OFFVIS ---
Vital Signs 10/21/25 11:50 Height 5 ft 10 in Weight 205 lb BMI 29.4 Intake Visit Reasons: PO-LT shoulder 09/04/25 DR Intake Note: Kip is a 54 year old male left hand dominant who presents with complaints of mild to moderate discomfort in his left shoulder after undergoing left shoulder rotator cuff repair surgery on 09/04/2025. He continues with his home stretching program. He is no longer taking narcotics for his discomfort. He denies any fevers or chills. Allergies No Known Allergies Allergy (Verified 09/17/25 12:05) [facility] Medical History Arm injury Family history of colon cancer Surgical History Hx of elbow surgery History of surgery on upper extremity H/O colonoscopy Social History Are you a primary companion caregiver to a significant other at home: No Do you presently have visiting nurse or other home services: No Patient Tobacco Use Status: Former Tobacco user Tobacco use type: Cigarette Years Smoked: 2 Physical Exam Vital Signs: BMI result Body Mass Index 29.4 Extrem Other: Left shoulder examination shows that the surgical incisions are well healed, no erythema, mild discomfort with passive range of motion, minimal discomfort with resisted internal and external rotation Assessment & Plan Assessment & Plan (1) Left shoulder pain: Code(s): M25.512 - Pain in left shoulder Category: Medical Plan Kip continues to do well after undergoing left shoulder rotator cuff repair surgery on 09/04/2025. He will continue with his home stretching program. The do's and don'ts of lifting were discussed at length with the patient. He can begin gentle active range of motion over the next few weeks. He will contact me prior to his follow-up appointment in 2 months should any questions or concerns arise. Feel free to call me at any time should questions regarding his orthopedic management arise. Coding Level of Care Code Global (96964) Diagnoses Left shoulder pain M25.512
[2025-10-21 11:50] VITALS: BMI 29.4
== END 2025-10-21 12:10 | disposition home or self-care (01) ==
LOC: HO.HOS 11:41
PROVIDERS: PCP Internal Medicine; Visit Provider Orthopaedic Surgery
DX: M25.512 Pain in left shoulder (principal)
CPT/HCPCS: 99024